=== PATIENT | female | born 1935 | race Caucasian/White ===

== ENCOUNTER → 2019-11-10 | Outpatient (CLI) | payer OTHER, MEDICAID ==
--- NOTE | 2019-11-11 08:28 | RAD ---
EXAM: CHEST PA LATERAL INDICATION: Right-sided chest wall pain for 2 weeks.. TECHNIQUE: PA and lateral views COMPARISON: None currently available. FINDINGS: Post CABG surgical changes are present. The heart size is normal. The great vessels appear unremarkable. There is evidence of right hilar retraction, best appreciated on the lateral view. Lungs show a 5 cm mass in the posterior right lung, distorting the major fissure and likely either in the posterior right upper lobe or in the superior segment right lower lobe. Lungs are hyperinflated in a pattern suggesting underlying obstructive lung disease. There is no pleural effusion or pneumothorax. Plate and screw construct fixation of a distal left clavicular fracture is present. No displaced rib fractures or aggressive appearing osseous lesions are identified. The bones show generalized demineralization. IMPRESSION: There is a mass approximately 5 cm in size in the right lung that could be relevant to patient's complaints of right-sided chest wall pain. Recommend a chest CT with IV contrast in further evaluation. After initial physician contact attempt via paging, voicemail message left with ordering physician's automotive parts counter assistant with request for call back. Return phone call anticipated. Electronically signed by: Navneet Stevens MD (11/11/2019 8:25 AM) [facility]
== END ==
LOC: RAD 15:11
PROVIDERS: ATTEND Family Medicine
DX: R91.8 Other nonspecific abnormal finding of lung field (principal); R07.89 Other chest pain
CPT/HCPCS: 71046

== ENCOUNTER → 2019-12-10 | Outpatient (CLI) | payer OTHER, MEDICAID ==
[2019-11-26 10:33] VITALS: BP 128/60
[~2019-12-10] MED LIST: ALEN70TA6 PO; APIX5TAB PO; ASPI-630 PO; ATOR40TA59 PO; CALC-178 PO; CYAN500T52 PO; CYCL5TAB PO; DOCU-153 PO; ESCITALOPRAM OX20 MG PO; FERR325T14 PO; FOLI0.8C PO; FOLI20CA PO; FURO20TA3 PO; HYDR-2867 PO; METO25TA4 PO; MULT-245 PO; OMEG1CAP50 PO; PANT40TA77 PO; POLY2500 PO; SOLI10TA2 PO; UBID100C26 PO; VENTOLIN HFA18 GM INH; VITA1TAB19 PO
[2019-12-10] MEDS: GADOTERATE 7.5 MMOL/15ML VIAL. IVP ONE (14:38)
--- NOTE | 2019-12-10 15:59 | RAD ---
MRI of the Brain without and with Contrast 12/10/2019 Clinical History: Lung cancer. Technique: Unenhanced T1-weighted sagittal and axial and FLAIR, T2-weighted, gradient echo and diffusion-weighted axial images of the brain were obtained. After the intravenous administration of 8 cc of DOTAREM, enhanced T1-weighted axial, sagittal and coronal images of the brain were obtained. Findings: Some of the images are degraded by patient motion. There is generalized parenchymal atrophy. Patchy and multiple small focal areas of abnormally increased signal intensity are seen within the periventricular and subcortical white matter of both cerebral hemispheres on the FLAIR and T2-weighted images consistent with areas of small vessel ischemic disease. No acute parenchymal abnormality is seen. No abnormal area of contrast enhancement is noted. No extra-axial fluid collection is seen. There is no MRI evidence of acute ischemia/infarction. Moderate to severe mucosal thickening is seen throughout the paranasal sinuses. Moderate to large sized mastoid effusions are seen, left greater than right. Normal flow voids are seen within the major vascular structures surrounding the brain parenchyma. Impression: No acute parenchymal abnormality is seen. There is no MRI evidence of metastatic disease involving the brain parenchyma. Electronically signed by: Rico Steele MD (12/10/2019 3:57 PM) [id number]
--- NOTE | 2019-12-10 18:25 | RAD ---
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 Biopsy 2 weeks ago. He COMPARISON/CORRELATION: 11/19/2019 CT chest with contrast FINDINGS: Net dose 14.3 mCi F-18 FDG was administered intravenously for purposes of PET/CT exam. Blood glucose level at the time of radiotracer administration was 146 mg/dL. Imaging was performed from the skull base to the proximal thighs. Hepatic reference uptake is SUV max of 1.1 . Significant chronic paranasal sinusitis is present. Right lower lobe mass identified with peripheral rim intense uptake and otherwise is photopenic. SUV max of 7.4 is evident. This mass abuts the posterolateral pleural. Focal uptake involving the posterolateral right sixth rib at the site of destructive change appears very present. Mild uptake involving the posterior lower hilum with SUV maximum of the tube is present. There is no intensely abnormal uptake involving the thoracic lymph nodes. No suspicious hilar uptake. Emphysematous involvement of the lung lewis is noted. Interstitial thickening about the right lower lobe mass is again seen with minimal atelectasis. Marked coronary arterial calcifications present. Sternal wires noted. Cholecystectomy is noted. Contrast is noted in the pyelocalyceal systems. Minimal contrast within the urinary bladder is also seen. Fluid distends the stomach. Moderate quantity of stool is noted throughout the colon. Diverticulosis is present. Uptake of radiotracer and small bowel is physiologic in distribution. Osteopenia is noted. No suspicious uptake involving bony structures. IMPRESSION: Right lower lobe mass with peripheral rim of intense uptake compatible with active neoplastic disease. Involvement of the adjacent posterolateral right rib appears be present with associated destructive findings. Surrounding atelectasis is seen. No significant uptake involving the described right hilar lymph nodes on the CT chest with contrast exam dated 11/19/2019 that strongly suggest active metastatic involvement. The lymph nodes may be the result of previous granulomatous or other inflammatory process. The additional small nodule described on the CT chest with contrast dated 11/19/2019 is obscured by adjacent atelectasis. No suspicious uptake identified at the site however. PQRS Compliance Statement: One or more of the following individualized dose reduction techniques were utilized for this examination: 1. Automated exposure control 2. Adjustment of the mA and/or kV according to patient size 3. Use of iterative reconstruction technique Electronically signed by: Aydin Shah MD (12/10/2019 6:22 PM) [id number]
== END ==
LOC: PETSC 13:17
PROVIDERS: ATTEND Radiology Radiation Oncology
DX: C34.31 Malignant neoplasm of lower lobe, right bronchus or lung (principal); J98.11 Atelectasis; M24.80 Other specific joint derangements of unspecified joint, not elsewhere classified; R91.1 Solitary pulmonary nodule; Z90.49 Acquired absence of other specified parts of digestive tract
CPT/HCPCS: 70553; 78815; A9552; A9575

== ENCOUNTER → 2020-02-28 | Outpatient (CLI) | payer OTHER, MEDICAID ==
[2019-11-26 10:33] VITALS: BP 128/60
[~2020-02-28] MED LIST changes: +GADOTERATE 7.5 MMOL/15ML VIAL. IVP ONE
--- NOTE | 2020-02-28 10:59 | RAD ---
THORACIC SPINE WO/W CONTRAST 02/28/2020 9:00 AM INDICATION: Lung cancer with back pain COMPARISON: PET/CT December 10, 2019. TECHNIQUE: Multi planar, multisequence MR imaging of the thoracic spine with and without intravenous contrast. 8 mL gadolinium based contrast was administered. FINDINGS: The region of previously seen solid noncalcified parenchymal mass in the right lower lobe, there is a 4.1 x 3.7 cm masslike area of consolidation with central fluid signal containing gas. There is associated marrow replacement involving the posterior sixth and seventh ribs. Reticular interstitial changes and trace right pleural effusion noted. Loculated fluid is noted along the medial aspect of the right lower lobe. There is exaggerated kyphosis centered at T8-T9. There is a superior plate compression fracture involving T2 with 25 percent height loss. No significant retropulsion. There is a superior plate compression fracture at T4 with 50 percent height loss without retropulsion. No epidural soft tissue component is identified. Findings are suspected represent osteoporotic compression fractures. Mild fatty marrow of the central thoracic spine could reflect post treatment related changes. There is superior endplate edema at T9 and T11 with less than 15 percent height loss. There is no disruption of the posterior ligamentous complex. No definite epidural hematoma is identified. Splenic hilar varices are noted. There is no significant disc herniation, neuroforaminal or spinal canal stenosis. Thoracic spinal cord is normal signal intensity and morphology. No suspicious enhancement is identified. Impression: 1. Superior endplate compression fractures at T2, T4, T9 and T11 with most significant height loss at T4 resulting in 50 percent height loss. No definite underlying pathologic component is visualized. No disruption of the posterior ligament is complex. No compressive epidural hematoma is visualized. 2. Right lower lobe lung mass contains increased fluid component with gas, previously solid on prior PET/CT from 12/10/2019. Correlate with any underlying history of pneumonia or intrapulmonary abscess with gas-forming organism. FOR INTERNAL CODING PURPOSES Critical result: Findings discussed with Maria D at the office of Dr. JOSEPH ORO at 02/28/2020 10:47 AM. RESULT CODE: (C) Electronically signed by: Gianna Abrams MD (02/28/2020 10:56 AM) [facility]
== END | disposition home or self-care (01) ==
LOC: MRI 09:19
PROVIDERS: ATTEND Radiology Radiation Oncology
DX: M48.54XA Collapsed vertebra, not elsewhere classified, thoracic region, initial encounter for fracture (principal); C34.31 Malignant neoplasm of lower lobe, right bronchus or lung; R91.8 Other nonspecific abnormal finding of lung field
CPT/HCPCS: 72157; A9575

== ENCOUNTER → 2020-05-02 | Outpatient (CLI) | payer OTHER, MEDICAID ==
[2019-11-26 10:33] VITALS: BP 128/60
[~2020-05-02] MED LIST changes: -GADOTERATE 7.5 MMOL/15ML VIAL. IVP ONE
== END | disposition home or self-care (01) ==
LOC: LAB 13:18
PROVIDERS: ATTEND Internal Medicine Cardiovascular Disease
DX: Z01.818 Encounter for other preprocedural examination (principal); Z11.59 Encounter for screening for other viral diseases; I48.91 Unspecified atrial fibrillation
CPT/HCPCS: U0003-CS

== ENCOUNTER 2020-05-05 11:11 | Day surgery (SDC) | payer OTHER, MEDICAID ==
[~2020-05-05 11:11] MED LIST changes: +CITA40TA5 PO; +HYDROmorphone 2 MG/ML VIAL IV PRN; +IV RINGERS,LACTATED 1000ML 1,000 ML IV SCH; +MECL-75 PO; +MORPHINE SULFATE 2 MG/ML VIAL. IV PRN; +PROCHLORPERAZINE 10 MG/2 ML VIAL. IV PRN; +fentaNYL PF VIAL 100 MCG/2 ML VIAL IV PRN
[2020-05-05] MEDS ORDERED: PROPOFOL 10 MG/ML (20ML) VIAL. IV ONE (11:55)
[2020-05-05] MEDS ORDERED: LIDOCAINE 2% PF 5 ML VIAL. ONE (11:55)
--- NOTE | 2020-05-05 11:56 | EKG ---
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
[2020-05-05 12:01] LABS: HEMATOCRIT 23.9 % (36.0-47.0); HEMOGLOBIN 7.5 g/dL (12.0-15.5)
[2020-05-05 12:08] LABS: CALCIUM 8.8 mg/dL (8.5-10.1); CREATININE 0.8 mg/dL (0.6-1.0); GFR 68.5; POTASSIUM 3.8 mmol/L (3.5-5.1)
[2020-05-05 12:55] VITALS: BP 137/45
== END 2020-05-05 13:10 | disposition home or self-care (01) ==
LOC: SURG 11:11
PROVIDERS: ATTEND Internal Medicine Cardiovascular Disease
DX: I48.0 Paroxysmal atrial fibrillation (principal); I25.10 Atherosclerotic heart disease of native coronary artery without angina pectoris; M19.90 Unspecified osteoarthritis, unspecified site; F41.9 Anxiety disorder, unspecified; F32.9 Major depressive disorder, single episode, unspecified; I10 Essential (primary) hypertension; J44.9 Chronic obstructive pulmonary disease, unspecified; Z85.118 Personal history of other malignant neoplasm of bronchus and lung; Z90.49 Acquired absence of other specified parts of digestive tract; Z98.61 Coronary angioplasty status; Z90.710 Acquired absence of both cervix and uterus; Z87.891 Personal history of nicotine dependence; Z53.8 Procedure and treatment not carried out for other reasons
CPT/HCPCS: 36415; 80048; 85014; 85018; 92960; 93005; J2704

== ENCOUNTER → 2020-05-17 | Outpatient (CLI) | payer OTHER, MEDICAID ==
[2020-05-05 12:55] VITALS: BP 137/45
[~2020-05-17] MED LIST changes: -HYDROmorphone 2 MG/ML VIAL IV PRN; -IV RINGERS,LACTATED 1000ML 1,000 ML IV SCH; -MORPHINE SULFATE 2 MG/ML VIAL. IV PRN; -PROCHLORPERAZINE 10 MG/2 ML VIAL. IV PRN; +REGADENOSON 0.4 MG/5 ML DISP.SYRIN. IV ONE; -fentaNYL PF VIAL 100 MCG/2 ML VIAL IV PRN
--- NOTE | 2020-05-17 11:50 | RAD ---
MR#: [id number] Date of Study: 05/17/2020 Ordering Physician: JIBMO SERNA, Referring Physician: JIMBO SERNA, Tech: Preet Cosme MBA, RDMS, RVT, RDCS, RTR APPROVED REPORT Patient Location: OUT-PATIENT Indications Rest Pain:Bilaterally VELOCITY AND DOPPLER WAVEFORM ANALYSIS RIGHT cm/secWaveformSeverity LEFT cm/secWaveform Severity dCFA 246.0BiphasicdCFA 223.0Biphasic Prof Fem Art. 121.0BiphasicProf Fem Art. 91.0Biphasic Fem Art Prox. 186.0BiphasicFem Art Prox. 239.0Biphasic Fem Art Mid. 171.0BiphasicFem Art Mid. 113.0Biphasic Fem Art Dist. 89.0BiphasicFem Art Dist. 99.0Biphasic Pop Art(Fossa) 101.0BiphasicPop Art(AK) 104.0Biphasic BRAZE OPERATOR Prox. 77.0BiphasicPTA Prox. 144.0Biphasic BRAZE OPERATOR Dist. 111.0BiphasicPTA Dist. 132.0Biphasic Per Art Mid. 100.0BiphasicPer Art Mid. 109.0Biphasic LA Prox. 77.0BiphasicATA Prox. 89.0Biphasic DPA 56BiphasicDPA 59Biphasic Findings Moderate bilateral plaque in the lower extremity arterial vessels. Biphasic waveforms throughout the lower extremity arteries. Three-vessel runoff below the knee. No high-grade stenosis. Critical Notification Critical Value: No <Conclusion> 1. No significant bilateral lower extremity disease Signed by : Ulysses Robin, Electronically Approved : 05/17/2020 11:50:02
--- NOTE | 2020-05-17 17:12 | RAD ---
MR#: [id number] Date of Study: 05/17/2020 Ordering Physician: JIMBO SERNA, Referring Physician: ARIANNA CUNNINGHAM Tech: RT Glo Quiroga) (N) APPROVED REPORT Test Type: Pharmacological Stress Nurse/Tech: Kera Hernandez R.N. Test Indications: cad Cardiac History: CABG 2 vessel 20 years ago, htn, copd Medications: see ehr Medical History: lung ca Resting ECG: afib Resting Heart Rate: 79 bpm Resting Blood Pressure: 152/49mmHg Pretest Chest Pain: No chest pain Nurse/Tech Notes lungs cta, heart tones irregular Consent: The procedure was explained to the patient in lay terms. Informed consent was witnessed. Osman eout was entered into [facility]. History and Stress Test performed by RT Glo Quiroga) (N) Pharm. Details Pharmacologic stress testing was performed using 0.4mg per 5ml of regadenoson given intravenously ove r 7-10 seconds. Stress Symptoms No chest pain or symptoms.DyspneaNausea POST EXERCISE Reason for Termination: Infusion complete Target HR: No Max HR: 102 bpm Max Blood Pressure: 151/52mmHg Chest Pain: No. Arrhythmia: Yes. PVCs noted ST Change: No. INTERPRETATION Stress EKG Conclusion: The resting EKG shows atrial fibrillation with mild nonspecific ST segment meena nges. The patient has episodes of sinus rhythm with infusion but no ischemic changes. No EKG evidence of stress-induced ischemia. Imaging Protocol IMAGE PROTOCOL: Rest Tc-99m/stress Tc-99m 1 day Rest: Stress: Viability: Radiopharm.Tc99m [id number] Sestamibi Wesm93cDv 31.4mCi Duration 13min. 13min. Img Date 05/17/2020 05/17/2020 Inj-Img Nqzp76nlt. 60min. Rest Admin Site:IV - Left AntecubitalAdministrator:RT Glo Padron)(N) Stress Admin Site: IV - Left AntecubitalAdministrator: RT Glo Quiroga)(N) STRESS DATA End Diast. Vol.59.0mlLVEDV index BSA37.0ml End Syst. Vol.11.0mlLVESV index BSA7.0ml Myocardial Mass94.0gEject. Jmthiqtj49.0% Stress Scores Regional WT0.00Summed WT2.00 Regional WM0.00Summed WM1.00 LV Perfusion The stress scans show no significant defects. The rest scans show no significant defects. Nuclear imaging shows no reversible ischemia or infarct. Wall Motion Left ventricular systolic function is normal with no regional wall motion abnormalities and an ejecti on fraction of greater than 70%. LV Perf. Quant 17 Seg. SSS2.00 17 Seg. SRS0.00 17 Seg. SDS2.00 Stress Defect Extent (% LAD)0.00Rest Defect Extent (% LAD)0.00Rev. Defect Extent (% LAD)0.00 Stress Defect Extent (% LCX) 12.50Rest Defect Extent (% LCX)0.00Rev. Defect Extent (% LCX)0.00 Stress Defect Extent (% RCA)0.00Rest Defect Extent (% RCA)0.00Rev. Defect Extent (% RCA)0.00 Stress Defect Extent (% MARISA)2.20Rest Defect Extent (% MARISA)0.00Rev. Defect Extent (% MARISA)0.00 Conclusion 1. No EKG evidence of stress-induced ischemia. 2. Nuclear imaging shows no reversible ischemia or infarct. 3. Normal left ventricular systolic function with an ejection fraction of greater than 70%. 4. Low risk Lexiscan nuclear stress test. Signed by : Talat Sanchez MD Electronically Approved : 05/17/2020 17:12:14
== END | disposition home or self-care (01) ==
LOC: NM 10:45
PROVIDERS: ATTEND Internal Medicine Cardiovascular Disease
DX: I70.203 Unspecified atherosclerosis of native arteries of extremities, bilateral legs (principal); J44.9 Chronic obstructive pulmonary disease, unspecified; I10 Essential (primary) hypertension; Z95.1 Presence of aortocoronary bypass graft
CPT/HCPCS: 78452; 93017; 93925; A9500; J2785

== ENCOUNTER 2020-06-06 20:12 | Inpatient (IN) | payer OTHER, MEDICAID ==
[~2020-06-06] VITALS: Ht 152.4 cm; Wt 46.9 kg
[~2020-06-06 20:12] MED LIST changes: -REGADENOSON 0.4 MG/5 ML DISP.SYRIN. IV ONE
--- NOTE | 2020-06-06 20:27 | PHYS DOC ---
Past Medical History Past Medical History: CAD, COPD, High Cholesterol, Hypertension Past Surgical History: Cholecystectomy, Coronary Bypass Surgery, Hysterectomy Smoking Status: Former Smoker Alcohol Use: None General Adult EDM: Chief Complaint: SHORTNESS OF BREATH HPI: HPI: 85-year-old female past medical history significant for stage 4 lung cancer, COPD with tobacco dependence, CAD, atrial fibrillation on eliquis and hypertension, presents the ED with complaints of shortness of breath for the past few days with anorexia, sore throat and productive cough. Patient states she had a stress test and lower extremity duplex ultrasound by primary care physician. EMR was reviewed lower extremity duplex showed no evidence of DVT. Stress test showed no active ischemia, with atrial fibrillation. Review of Systems: Review of Systems: Constitutional: Denies fever or chills. [] Eyes: Denies change in visual acuity. [] HENT: Denies nasal congestion or sinus pressure Respiratory: Denies hemoptysis Cardiovascular: Denies chest pain or edema. [] GI: Denies abdominal pain, nausea, vomiting, bloody stools or diarrhea. [] : Denies dysuria. [] or hematuria Musculoskeletal: Denies back pain or joint pain. [] Integument: Denies rash. [] Neurologic: Denies headache, focal weakness or sensory changes. [] or neck stiffness Endocrine: Denies polyuria or polydipsia. [] Lymphatic: Denies swollen glands. [] Psychiatric: Denies depression or anxiety. [] Heart Score: Risk Factors: Risk Factors: DM, Current or recent (<one month) smoker, HTN, HLP, family history of CAD, obesity. Risk Scores: Score 0 - 3: 2.5% MACE over next 6 weeks - Discharge Home Score 4 - 6: 20.3% MACE over next 6 weeks - Admit for Clinical Observation Score 7 - 10: 72.7% MACE over next 6 weeks - Early Invasive Strategies Allergies: Allergies: Allergies Coded Allergies Type Severity Reaction Last Updated Verified No Known Drug Allergies 05/04/20 No Physical Exam: PE: Constitutional: thin/frail, no acute distress, HENT: Normocephalic, atraumatic, bilateral external ears normal, oropharynx moist, no oral exudates or erythema, nose normal. [] Eyes: EOMI, conjunctiva normal, no discharge. [] Neck: Normal range of motion, supple, no stridor. [] Cardiovascular:Heart rate regular rhythm, no murmur [] Lungs & Thorax: Bilateral breath sounds clear to auscultation [] Abdomen: Bowel sounds normal, soft, no tenderness, no masses, no pulsatile masses. [] Skin: Warm, dry, pale appearing Back: No tenderness, no CVA tenderness. [] Extremities: No tenderness, no cyanosis, no clubbing, ROM intact, no edema. [] Neurologic: Alert and oriented X 3, normal motor function, normal sensory function, no focal deficits noted. [] Psychologic: Affect normal, judgement normal, mood normal. [] EKG: EKG: Atrial fibrillation at 105 bpm, no axis deviation, normal intervals, no T wave inversions, no ST elevations or ST depressions Radiology/Procedures: Radiology/Procedures: []IMAGING REPORT Signed PATIENT: MEGHA BANUELOS AACCOUNT: [id number] : 1935 LOCATION: ER AGE: 85 SEX: F EXAM STATUS: REG ER ORD. PHYSICIAN: CHLOÉ WEEMS DO REASON: soa PROCEDURE: PORTABLE CHEST 1V AP chest x-ray HISTORY: Shortness of breath. COMPARISON: Chest x-ray November 26, 2019. FINDINGS: Prominent cardiomegaly stable. Median sternotomy coronary bypass. Fixation plate and screws left clavicle. Prominence of the pulmonary vasculature likely congestion is stable. Development of right greater than left pulmonary interstitial and alveolar opacities with fissural thickening likely pulmonary edema. No pleural effusions. IMPRESSION: Congestive heart failure with cardiomegaly and pulmonary edema. No pleural effusions. Electronically signed by: Tacho Yeboah MD (06/06/2020 9:24 PM) [id number] DICTATED and SIGNED BY: TACHO YEBOAH MD DATE: 06/06/202123 Course & Med Decision Making: Course & Med Decision Making Pertinent Labs and Imaging studies reviewed. (See chart for details) Concern sepsis secondary to community-acquired pneumonia, afib with rate 105, pulmonary vascular congestion with congestive heart failure and symptomatic anemia. Patient states stool is brown in color. States she started peeing blood on Friday. No active blood loss in ed. Transfusion started in ed. Will admit for other medical management. Patient stable at time of admission and agrees with this plan. Patient is a DNR. I have spoken with the patient and/or caregivers. I have explained the patient's condition, diagnosis and treatment plan based on the information available to me at this time. I have answered the patient's and/or caregivers questions and answered any concerns. The patient and/or caregivers have as good an understanding of the patient's diagnosis, condition and treatment plan as can be expected at this point. The patient has been stabilized within the capability of the emergency department. The patient will be transported for further care and management or will be moved to an observation or inpatient s ervice. I have communicated with the staff or medical practitioner taking over this patient's care. Dragon Disclaimer: Dragon Disclaimer: This electronic medical record was generated, in whole or in part, using a voice recognition dictation system. Departure Departure Impression: Primary Impression: Sepsis Additional Impressions: CAP (community acquired pneumonia) CHF (congestive heart failure) Symptomatic anemia Disposition: ADMITTED INPATIENT Admitting Physician: HUONG (Dr. Umanzor) Condition: GUARDED Referrals: Guzman DELVALLE MD (PCP) Justicifation of Admission Dx: Justifications for Admission: Justification of Admission Dx: Yes CHLOÉ WEEMS DO Jun 06, 2020 20:27
[2020-06-06] MEDS ORDERED: IV NORMAL SALINE 250ML 250 ML IV ONE (20:45)
[2020-06-06] MEDS ORDERED: cefTRIAXone IV Push 1 GM VIAL. IVP ONE (20:45)
[2020-06-06] MEDS ORDERED: AZITHRMYCN 500MG IVPB FOR OMNI 250 ML IV ONE (20:45)
[2020-06-06 20:53] LABS: BASO % 1 % (0-3); EOS % 0 % (0-3); LYMPH # 0.3 x10^3/uL (1.0-4.8); LYMPH % 4 % (24-48); MEAN CORPUSCULAR HEMOGLOBIN 22 pg (25-35); MEAN CORPUSCULAR HGB CONC 31 g/dL (31-37); MEAN CORPUSCULAR VOLUME 71 fL (79-100); MONO # 0.4 x10^3/uL (0.0-1.1); MONO % 7 % (0-9); NEUT % 88 % (31-73); PLATELET COUNT 376 x10^3/uL (140-400); RED BLOOD COUNT 2.36 x10^6/uL (3.50-5.40); RED CELL DISTRIBUTION WIDTH 19.3 % (11.5-14.5); WHITE BLOOD COUNT 6.8 x10^3/uL (4.0-11.0)
[2020-06-06 20:59] LABS: HEMATOCRIT 16.8 % (36.0-47.0); HEMOGLOBIN 5.2 g/dL (12.0-15.5)
[2020-06-06 21:04] LABS: CALCIUM 8.6 mg/dL (8.5-10.1); CREATININE 0.8 mg/dL (0.6-1.0); GFR 68.5; POTASSIUM 4.2 mmol/L (3.5-5.1)
[2020-06-06 21:09] LABS: ALBUMIN 2.3 g/dL (3.4-5.0); ALBUMIN/GLOBULIN RATIO 0.4 (1.0-1.7); TOTAL BILIRUBIN 0.2 mg/dL (0.2-1.0); TOTAL PROTEIN 7.7 g/dL (6.4-8.2)
[2020-06-06 21:21] LABS: % BANDS 3 % (0-9); % BASOS 1 % (0-3); % LYMPHS 2 % (24-48); % MONOS 8 % (0-10); % SEGS 86 % (35-66); ANISOCYTOSIS SLIGHT; HYPOCHROMIA MOD; MICROCYTOSIS MOD; PLT ESTIMATE ADEQUATE (ADEQUATE); POIKILOCYTOSIS SLIGHT
[2020-06-06 21:22] LABS: OVALOCYTES FEW
--- NOTE | 2020-06-06 21:27 | RAD ---
AP chest x-ray HISTORY: Shortness of breath. COMPARISON: Chest x-ray November 26, 2019. FINDINGS: Prominent cardiomegaly stable. Median sternotomy coronary bypass. Fixation plate and screws left clavicle. Prominence of the pulmonary vasculature likely congestion is stable. Development of right greater than left pulmonary interstitial and alveolar opacities with fissural thickening likely pulmonary edema. No pleural effusions. IMPRESSION: Congestive heart failure with cardiomegaly and pulmonary edema. No pleural effusions. Electronically signed by: Parveen Yeboah MD (06/06/2020 9:24 PM) [id number]
[2020-06-06] MEDS ORDERED: NITROGLYCERIN SUBLINGUAL 0.4 MG BOTTLE OF 25. SL PRN (21:45)
[2020-06-06 21:54] LABS: BASE EXCESS ABG -1 mmol/L (-3-3); HCO3 ABG 23 mmol/L (21-28); PCO2 ABG 32 mmHg (35-46); PO2 ABG 85 mmHg (65-108); SAT O2 ABG 98 % (92-99)
[2020-06-06 21:56] LABS: FIO2 ABG 32
[2020-06-06] MEDS ORDERED: DEXTROSE 50% 25 GM / 50ML DISP.SYRIN. IV PRN (22:30)
[2020-06-06] MEDS ORDERED: POTASSIUM CHLORIDE 20 MEQ TABLET.ER. PO PRN (22:30)
[2020-06-06] MEDS ORDERED: DOCUSATE SODIUM 100 MG CAPSULE. PO PRN (22:30)
[2020-06-06] MEDS ORDERED: SENNOSIDES 8.6 MG TABLET PO PRN (22:30)
[2020-06-06] MEDS ORDERED: POTASSIUM CHLORIDE 10MEQ 100 ML IV PRN (22:30)
[2020-06-06] MEDS ORDERED: ONDANSETRON PF 4 MG/2 ML VIAL. IVP PRN (22:30)
[2020-06-06] MEDS ORDERED: POTASSIUM CHLORIDE 10MEQ 100 ML IV SCH (23:00)
[2020-06-06 23:50] VITALS: BP 120/56
[2020-06-07] VITALS (13 sets, daily range): BP systolic 110–156; BP diastolic 50–87
--- NOTE | 2020-06-07 02:00 | NUR ---
pt needed a unit of blood, first temp chech said 98.3 on units thermometer. . next check disposable thermometer said said used disposable thermometer and it said 100.0 determine disposable is not accurate. lcrn
[2020-06-07] MEDS: ACETAMINOPHEN 325 MG TABLET. PO PRN ×3 (02:11→21:39)
[2020-06-07] MEDS: ENOXAPARIN 30 MG/0.3 ML SYRINGE. SQ SCH (05:47)
[2020-06-07 07:29] LABS: BASO % 0 % (0-3); EOS # 0.1 x10^3/uL (0.0-0.7); EOS % 1 % (0-3); HEMATOCRIT 24.2 % (36.0-47.0); HEMOGLOBIN 7.9 g/dL (12.0-15.5); LYMPH # 0.5 x10^3/uL (1.0-4.8); LYMPH % 10 % (24-48); MEAN CORPUSCULAR HEMOGLOBIN 25 pg (25-35); MEAN CORPUSCULAR HGB CONC 33 g/dL (31-37); MEAN CORPUSCULAR VOLUME 77 fL (79-100); MONO # 0.6 x10^3/uL (0.0-1.1); MONO % 12 % (0-9); NEUT # 3.7 x10^3/uL (1.8-7.7); NEUT % 77 % (31-73); PLATELET COUNT 285 x10^3/uL (140-400); RED BLOOD COUNT 3.14 x10^6/uL (3.50-5.40); RED CELL DISTRIBUTION WIDTH 20.2 % (11.5-14.5); WHITE BLOOD COUNT 4.7 x10^3/uL (4.0-11.0)
[2020-06-07 07:45] LABS: CALCIUM 8.4 mg/dL (8.5-10.1); CREATININE 0.6 mg/dL (0.6-1.0); GFR 95.5; MAGNESIUM 2.3 mg/dL (1.8-2.4); PHOSPHORUS 3.1 mg/dL (2.6-4.7)
--- NOTE | 2020-06-07 07:56 | EKG ---
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
--- NOTE | 2020-06-07 08:59 | PDOC1 ---
History and Physical Date of Admission Date of Admission DATE: 06/07/20 TIME: 08:59 Identification/Chief Complaint Chief Complaint SEEN IN ER WITH COUGH , 85-year-old female past medical history significant for stage 4 lung cancer, COPD with tobacco dependence, CAD, atrial fibrillation on eliquis and hypertension, presents the ED with complaints of shortness of breath for the past few days with anorexia, sore throat and productive cough. Patient states she had a stress test and lower extremity duplex ultrasound by primary care physician. EMR was reviewed lower extremity duplex showed no evidence of DVT. Stress test showed no active ischemia, with atrial fibrillation. 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 FHX COPD Cardiovascular: Hyperlipidemia Pulmonary: Bronchitis, COPD Psych: No pertinent hx Musculoskeletal: Osteoarthritis Endocrine: No pertinent hx Family History Family History: Chronic Bronchitis, Hypertension Social History Smoke: Quit ALCOHOL: none Drugs: None Current Problem List Problem List Problems Medical Problems: (1) CAP (community acquired pneumonia) Status: Acute (2) CHF (congestive heart failure) Status: Acute (3) Sepsis Status: Acute (4) Symptomatic anemia Status: Acute Current Medications Current Medications Current Medications Ceftriaxone Sodium (Rocephin) 1 gm 1X ONCE IVP Last administered on 06/06/20at 21:00; Start 06/06/20 at 20:45; Stop 06/06/20 at 20:46; Status DC Azithromycin 250 ml @ 250 mls/hr 1X ONCE IV Last administered on 06/06/20at 21:00; Start 06/06/20 at 20:45; Stop 06/06/20 at 21:44; Status DC Sodium Chloride 250 ml @ 250 mls/hr 1X ONCE IV Last administered on 06/06/20at 21:00; Start 06/06/20 at 20:45; Stop 06/06/20 at 21:44; Status DC Nitroglycerin (Nitrostat) 0.4 mg PRN Q5MIN PRN SL CHEST PAIN; Start 06/06/20 at 21:45 Sennosides (Senna) 17.2 mg PRN BID PRN PO CONSTIPATION; Start 06/06/20 at 22:30 Docusate Sodium (Colace) 100 mg PRN DAILY PRN PO HARD STOOLS; Start 06/06/20 at 22:30 Ondansetron HCl (Zofran) 4 mg PRN Q6HRS PRN IVP NAUSEA/VOMITING; Start 06/06/20 at 22:30 Potassium Chloride (Klor-Con) 40 meq 1X PRN PRN PO PER PROTOCOL; Start 06/06/20 at 22:30 Magnesium Oxide (Magnesium Oxide) 400 mg BID PO ; Start 06/07/20 at 09:00; Stop 06/08/20 at 21:01 Potassium Chloride/Water 100 ml @ 100 mls/hr Q1H IV ; Start 06/06/20 at 23:00; Stop 06/07/20 at 02:59; Status DC Magnesium Sulfate 50 ml @ 25 mls/hr Q24H IV ; Start 06/06/20 at 23:00; Stop 06/09/20 at 00:59 Potassium Chloride/Water 100 ml @ 100 mls/hr PRN Q1HR PRN IV low k; Start 06/06/20 at 22:30 Dextrose (Dextrose 50%-Water Syringe) 12.5 gm PRN Q15MIN PRN IV SEE COMMENTS; Start 06/06/20 at 22:30 Acetaminophen (Tylenol) 650 mg PRN Q4HRS PRN PO TEMP OVER 100.4F OR MILD PAIN Last administered on 06/07/20at 02:11; Start 06/06/20 at 22:30 Enoxaparin Sodium (Lovenox 30mg Syringe) 30 mg Q24H SQ Last administered on 06/07/20at 05:47; Start 06/06/20 at 22:30 Azithromycin 500 mg/Sodium Chloride 250 ml @ 250 mls/hr Q24H IV ; Start 06/07/20 at 21:00 Ceftriaxone Sodium (Rocephin) 1 gm Q24H IVP ; Start 06/07/20 at 20:00 Influenza Virus Vaccine Quadrival (Fluzone Quad Syringe) 0.5 ml ONCE ONCE VAX IM ; Start 06/07/20 at 09:00; Stop 06/07/20 at 09:01 Active Scripts Active Reported Meclizine Hcl 25 Mg Tablet 25 Mg PO PRN PRN Citalopram Hbr (Citalopram Hydrobromide) 40 Mg Tablet 40 Mg PO DAILY Folic Acid 0.8 Mg Capsule 0.4 Mg PO DAILY Dok (Docusate Sodium) 100 Mg Capsule 100 Mg PO DAILY Coq-10 (Ubidecarenone) 100 Mg Capsule 100 Mg PO DAILY Calcium 1,000 + D3 Caplet (Calcium Carbonate/Vitamin D3) 1 Each Tablet 1 Tab PO DAILY 30 Days Atorvastatin Calcium 40 Mg Tablet 1 Tab PO DAILY Aspirin 81 Mg Tab.chew 1 Tab PO DAILY Eliquis (Apixaban) 5 Mg Tablet 5 Mg PO BID Alendronate Sodium 70 Mg Tablet 1 Tab PO WEEKLY Ventolin Hfa Inhaler (Albuterol Sulfate) 18 Gm Hfa.aer.ad 2 Puff INH PRN Q4-6HRS PRN Vitamin B-12 (Cyanocobalamin (Vitamin B-12)) 500 Mcg Tablet 1 Tab PO DAILY 30 Days B Complex (Vitamin B Complex) 1 Each Tablet 1 Tab PO DAILY 30 Days Vesicare (Solifenacin Succinate) 10 Mg Tablet 1 Tab PO DAILY 30 Days Polyethylene Glycol 3350 2,500 Gm Powder 17 Gm PO DAILY Pantoprazole Sodium (Pantoprazole Sodium) 40 Mg Tablet.dr 40 Mg PO DAILYAC Multi Vitamin Daily (Multivitamin) 1 Each Tablet 1 Tab PO DAILY 30 Days Metoprolol Tartrate 25 Mg Tablet 1 Tab PO BID Hydralazine Hcl 10 Mg Tablet 2 Tab PO TID Furosemide 20 Mg Tablet 1 Tab PO DAILY Fish Oil 1,000 Mg Softgel (Wells-3 Fatty Acids/Fish Oil) 1 Each Capsule 1 Cap PO DAILY 30 Days Ferrous Sulfate 325 Mg Tablet 1 Tab PO DAILY Allergies Allergies: Coded Allergies: No Known Drug Allergies (Unverified , 05/04/20) ROS Review of System Constitutional: Denies fever or chills. [] Eyes: Denies change in visual acuity. [] HENT: Denies nasal congestion or sinus pressure Respiratory: Denies hemoptysis pos cough Cardiovascular: Denies chest pain or edema. [] GI: Denies abdominal pain, nausea, vomiting, bloody stools or diarrhea. [] : Denies dysuria. [] or hematuria Musculoskeletal: Denies back pain or joint pain. [] Integument: Denies rash. [] Neurologic: Denies headache, focal weakness or sensory changes. [] or neck stiffness Endocrine: Denies polyuria or polydipsia. [] Lymphatic: Denies swollen glands. [] Psychiatric: Denies depression or anxiety. [] 14 pt ros otherwise neg Physical Exam Physical Exam Constitutional: thin/frail, no acute distress, HENT: Normocephalic, atraumatic, bilateral external ears normal, oropharynx moist, no oral exudates or erythema, nose normal. [] Eyes: EOMI, conjunctiva normal, no discharge. [] Neck: Normal range of motion, supple, no stridor. [] Cardiovascular:Heart rate regular rhythm, no murmur [] Lungs & Thorax: Bilateral rhonchi Abdomen: Bowel sounds normal, soft, no tenderness, no masses, no pulsatile masses. [] Skin: Warm, dry, pale appearing Back: No tenderness, no CVA tenderness. [] Extremities: No tenderness, no cyanosis, no clubbing, ROM intact, no edema. [] Neurologic: Alert and oriented X 3, normal motor function, normal sensory function, no focal deficits noted. [] Psychologic: Affect normal, judgment normal, mood normal. [] Heart: RRR Breasts: Not examined Abdomen: Soft Rectal Exam: not examined PELVIC: Examination not indicated Extremities: No cyanosis Neuro: Normal speech, Cranial nerves 3-12 NL Psych/Mental Status: Mental status NL, Mood NL Vitals Vitals Vital Signs Date Time Temp Pulse Resp B/P (MAP) Pulse Ox O2 Delivery O2 Flow Rate FiO2 06/07/20 07:05 97.7 87 18 121/78 (92) 100 97.7 06/07/20 01:30 3.0 06/06/20 23:50 Room Air Labs Labs Laboratory Tests Test 06/06/20 20:30 06/06/20 21:55 06/06/20 23:51 06/07/20 07:05 White Blood Count 6.8 x10^3/uL (4.0-11.0) 4.7 x10^3/uL (4.0-11.0) Red Blood Count 2.36 x10^6/uL (3.50-5.40) 3.14 x10^6/uL (3.50-5.40) Hemoglobin 5.2 g/dL (12.0-15.5) 7.9 g/dL (12.0-15.5) Hematocrit 16.8 % (36.0-47.0) 24.2 % (36.0-47.0) Mean Corpuscular Volume 71 fL (79-100) 77 fL (79-100) Mean Corpuscular Hemoglobin 22 pg (25-35) 25 pg (25-35) Mean Corpuscular Hemoglobin Concent 31 g/dL (31-37) 33 g/dL (31-37) Red Cell Distribution Width 19.3 % (11.5-14.5) 20.2 % (11.5-14.5) Platelet Count 376 x10^3/uL (140-400) 285 x10^3/uL (140-400) Neutrophils (%) (Auto) 88 % (31-73) 77 % (31-73) Lymphocytes (%) (Auto) 4 % (24-48) 10 % (24-48) Monocytes (%) (Auto) 7 % (0-9) 12 % (0-9) Eosinophils (%) (Auto) 0 % (0-3) 1 % (0-3) Basophils (%) (Auto) 1 % (0-3) 0 % (0-3) Neutrophils # (Auto) 6.0 x10^3/uL (1.8-7.7) 3.7 x10^3/uL (1.8-7.7) Lymphocytes # (Auto) 0.3 x10^3/uL (1.0-4.8) 0.5 x10^3/uL (1.0-4.8) Monocytes # (Auto) 0.4 x10^3/uL (0.0-1.1) 0.6 x10^3/uL (0.0-1.1) Eosinophils # (Auto) 0.0 x10^3/uL (0.0-0.7) 0.1 x10^3/uL (0.0-0.7) Basophils # (Auto) 0.0 x10^3/uL (0.0-0.2) 0.0 x10^3/uL (0.0-0.2) Segmented Neutrophils % 86 % (35-66) Band Neutrophils % 3 % (0-9) Lymphocytes % 2 % (24-48) Monocytes % 8 % (0-10) Basophils % 1 % (0-3) Platelet Estimate Adequate (ADEQUATE) Hypochromasia Mod Poikilocytosis Slight Anisocytosis Slight Microcytosis Mod Ovalocytes Few Sodium Level 131 mmol/L (136-145) 138 mmol/L (136-145) Potassium Level 4.2 mmol/L (3.5-5.1) 4.0 mmol/L (3.5-5.1) Chloride Level 96 mmol/L (98-107) 103 mmol/L (98-107) Carbon Dioxide Level 25 mmol/L (21-32) 29 mmol/L (21-32) Anion Gap 10 (6-14) 6 (6-14) Blood Urea Nitrogen 10 mg/dL (7-20) 9 mg/dL (7-20) Creatinine 0.8 mg/dL (0.6-1.0) 0.6 mg/dL (0.6-1.0) Estimated GFR (Cockcroft-Gault) 68.5 95.5 BUN/Creatinine Ratio 13 (6-20) Glucose Level 166 mg/dL (70-99) 95 mg/dL (70-99) Lactic Acid Level 3.9 mmol/L (0.4-2.0) 2.3 mmol/L (0.4-2.0) Calcium Level 8.6 mg/dL (8.5-10.1) 8.4 mg/dL (8.5-10.1) Magnesium Level 1.9 mg/dL (1.8-2.4) 2.3 mg/dL (1.8-2.4) Total Bilirubin 0.2 mg/dL (0.2-1.0) Aspartate Amino Transf (AST/SGOT) 21 U/L (15-37) Alanine Aminotransferase (ALT/SGPT) 12 U/L (14-59) Alkaline Phosphatase 70 U/L (46-116) Troponin I Quantitative < 0.017 ng/mL (0.000-0.055) IF-Lqk-M-Type Natriuretic Peptide 1795 pg/mL (0-449) Total Protein 7.7 g/dL (6.4-8.2) Albumin 2.3 g/dL (3.4-5.0) Albumin/Globulin Ratio 0.4 (1.0-1.7) O2 Saturation 98 % (92-99) Arterial Blood pH 7.47 (7.35-7.45) Arterial Blood pCO2 at Patient Temp 32 mmHg (35-46) Arterial Blood pO2 at Patient Temp 85 mmHg (65-108) Arterial Blood HCO3 23 mmol/L (21-28) Arterial Blood Base Excess -1 mmol/L (-3-3) FiO2 32 Phosphorus Level 3.1 mg/dL (2.6-4.7) Laboratory Tests Test 06/06/20 20:30 06/06/20 21:55 06/06/20 23:51 06/07/20 07:05 White Blood Count 6.8 x10^3/uL (4.0-11.0) 4.7 x10^3/uL (4.0-11.0) Red Blood Count 2.36 x10^6/uL (3.50-5.40) 3.14 x10^6/uL (3.50-5.40) Hemoglobin 5.2 g/dL (12.0-15.5) 7.9 g/dL (12.0-15.5) Hematocrit 16.8 % (36.0-47.0) 24.2 % (36.0-47.0) Mean Corpuscular Volume 71 fL (79-100) 77 fL (79-100) Mean Corpuscular Hemoglobin 22 pg (25-35) 25 pg (25-35) Mean Corpuscular Hemoglobin Concent 31 g/dL (31-37) 33 g/dL (31-37) Red Cell Distribution Width 19.3 % (11.5-14.5) 20.2 % (11.5-14.5) Platelet Count 376 x10^3/uL (140-400) 285 x10^3/uL (140-400) Neutrophils (%) (Auto) 88 % (31-73) 77 % (31-73) Lymphocytes (%) (Auto) 4 % (24-48) 10 % (24-48) Monocytes (%) (Auto) 7 % (0-9) 12 % (0-9) Eosinophils (%) (Auto) 0 % (0-3) 1 % (0-3) Basophils (%) (Auto) 1 % (0-3) 0 % (0-3) Neutrophils # (Auto) 6.0 x10^3/uL (1.8-7.7) 3.7 x10^3/uL (1.8-7.7) Lymphocytes # (Auto) 0.3 x10^3/uL (1.0-4.8) 0.5 x10^3/uL (1.0-4.8) Monocytes # (Auto) 0.4 x10^3/uL (0.0-1.1) 0.6 x10^3/uL (0.0-1.1) Eosinophils # (Auto) 0.0 x10^3/uL (0.0-0.7) 0.1 x10^3/uL (0.0-0.7) Basophils # (Auto) 0.0 x10^3/uL (0.0-0.2) 0.0 x10^3/uL (0.0-0.2) Segmented Neutrophils % 86 % (35-66) Band Neutrophils % 3 % (0-9) Lymphocytes % 2 % (24-48) Monocytes % 8 % (0-10) Basophils % 1 % (0-3) Platelet Estimate Adequate (ADEQUATE) Hypochromasia Mod Poikilocytosis Slight Anisocytosis Slight Microcytosis Mod Ovalocytes Few Sodium Level 131 mmol/L (136-145) 138 mmol/L (136-145) Potassium Level 4.2 mmol/L (3.5-5.1) 4.0 mmol/L (3.5-5.1) Chloride Level 96 mmol/L (98-107) 103 mmol/L (98-107) Carbon Dioxide Level 25 mmol/L (21-32) 29 mmol/L (21-32) Anion Gap 10 (6-14) 6 (6-14) Blood Urea Nitrogen 10 mg/dL (7-20) 9 mg/dL (7-20) Creatinine 0.8 mg/dL (0.6-1.0) 0.6 mg/dL (0.6-1.0) Estimated GFR (Cockcroft-Gault) 68.5 95.5 BUN/Creatinine Ratio 13 (6-20) Glucose Level 166 mg/dL (70-99) 95 mg/dL (70-99) Lactic Acid Level 3.9 mmol/L (0.4-2.0) 2.3 mmol/L (0.4-2.0) Calcium Level 8.6 mg/dL (8.5-10.1) 8.4 mg/dL (8.5-10.1) Magnesium Level 1.9 mg/dL (1.8-2.4) 2.3 mg/dL (1.8-2.4) Total Bilirubin 0.2 mg/dL (0.2-1.0) Aspartate Amino Transf (AST/SGOT) 21 U/L (15-37) Alanine Aminotransferase (ALT/SGPT) 12 U/L (14-59) Alkaline Phosphatase 70 U/L (46-116) Troponin I Quantitative < 0.017 ng/mL (0.000-0.055) OZ-[id number]-S-Type Natriuretic Peptide 1795 pg/mL (0-449) Total Protein 7.7 g/dL (6.4-8.2) Albumin 2.3 g/dL (3.4-5.0) Albumin/Globulin Ratio 0.4 (1.0-1.7) O2 Saturation 98 % (92-99) Arterial Blood pH 7.47 (7.35-7.45) Arterial Blood pCO2 at Patient Temp 32 mmHg (35-46) Arterial Blood pO2 at Patient Temp 85 mmHg (65-108) Arterial Blood HCO3 23 mmol/L (21-28) Arterial Blood Base Excess -1 mmol/L (-3-3) FiO2 32 Phosphorus Level 3.1 mg/dL (2.6-4.7) Images Images PATIENT: MEGHA BANUELOS AACCOUNT: [id number] : 1935 [address]ATION: [facility] AGE: 84 SEX: F EXAM STATUS: REG CLI ORD. PHYSICIAN: ELLIE CARDONA MD REASON: PROCEDURE: PET W CT SKULL TO MIDTHIGH EXAMINATION: PET W CT SKULL TO MIDTHIGH HISTORY: Right lower lobe squamous cell carcinoma initial staging. Biopsy 2 weeks ago. He COMPARISON/CORRELATION: 11/19/2019 CT chest with contrast FINDINGS: Net dose 14.3 mCi F-18 FDG was administered intravenously for purposes of PET/CT exam. Blood glucose level at the time of radiotracer administration was 146 mg/dL. Imaging was performed from the skull base to the proximal thighs. Hepatic reference uptake is SUV max of 1.1 . Significant chronic paranasal sinusitis is present. Right lower lobe mass identified with peripheral rim intense uptake and otherwise is photopenic. SUV max of 7.4 is evident. This mass abuts the posterolateral pleural. Focal uptake involving the posterolateral right sixth rib at the site of destructive change appears very present. Mild uptake involving the posterior lower hilum with SUV maximum of the tube is present. There is no intensely abnormal uptake involving the thoracic lymph nodes. No suspicious hilar uptake. Emphysematous involvement of the lung lewis is noted. Interstitial thickening about the right lower lobe mass is again seen with minimal atelectasis. Marked coronary arterial calcifications present. Sternal wires noted. Cholecystectomy is noted. Contrast is noted in the pyelocalyceal systems. Minimal contrast within the urinary bladder is also seen. Fluid distends the stomach. Moderate quantity of stool is noted throughout the colon. Diverticulosis is present. Uptake of radiotracer and small bowel is physiologic in distribution. Osteopenia is noted. No suspicious uptake involving bony structures. IMPRESSION: Right lower lobe mass with peripheral rim of intense uptake compatible with active neoplastic disease. Involvement of the adjacent posterolateral right rib appears be present with associated destructive findings. Surrounding atelectasis is seen. No significant uptake involving the described right hilar lymph nodes on the CT chest with contrast exam dated 11/19/2019 that strongly suggest active metastatic involvement. The lymph nodes may be the result of previous granulomatous or other inflammatory process. The additional small nodule described on the CT chest with contrast dated 11/19/2019 is obscured by adjacent atelectasis. No suspicious uptake identified at the site however. PQRS Compliance Statement: One or more of the following individualized dose reduction techniques were utilized for this examination: 1. Automated exposure control 2. Adjustment of the mA and/or kV according to patient size 3. Use of iterative reconstruction technique Electronically signed by: Aydin Mendoza MD (12/10/2019 6:22 PM) [facility] DICTATED and SIGNED BY: AYDIN MENDOZA MD DATE: 12/10/191821 AP chest x-ray HISTORY: Shortness of breath. COMPARISON: Chest x-ray November 26, 2019. FINDINGS: Prominent cardiomegaly stable. Median sternotomy coronary bypass. Fixation plate and screws left clavicle. Prominence of the pulmonary vasculature likely congestion is stable. Development of right greater than left pulmonary interstitial and alveolar opacities with fissural thickening likely pulmonary edema. No pleural effusions. IMPRESSION: Congestive heart failure with cardiomegaly and pulmonary edema. No pleural effusions. Electronically signed by: Tacho Yeboah MD (06/06/2020 9:24 PM) [id number] DICTATED and SIGNED BY: TACHO YEBOAH MD DATE: 06/06/202123 DPOA REVIEW 17 MIN What Is a Power of Appliance Line Assembler? A power of defense attorney (POA) is a legal document giving one person (the agent or [id number]) the power to act for another person (the principal). The agent can have broad legal authority or limited authority to make legal decisions about the principal's property, finances or medical care. The power of defense attorney is frequently used in the event of a principal's illness or disability, or when the principal can't be present to sign necessary legal documents for financial transactions. A power of defense attorney can end for a number of reasons, such as when the principal dies, the principal revokes it, a court invalidates it, the principal divorces their spouse, who happens to be the agent, or the agent can no longer carry out the outlined responsibilities. Conventional POAs lapse when the creator becomes incapacitated, but a durable POA remains in force to enable the agent to manage the creators affairs, and a springing POA comes into effect only if and when the creator of the POA becomes incapacitated. A medical or healthcare POA enables an agent to make medical decisions on behalf of an incapacitated person. Hood Takeaways A power of defense attorney (POA) is a legal document giving one person, the agent or [id number] the power to act for another person, the principal. The agent can have broad legal authority or limited authority to make decisions about the principal's property, finances or medical care. The power of defense attorney is often used when a principal becomes ill or disabled, or when they can't be present to sign necessary legal documents for financial transactions. Understanding Power of Appliance Line Assembler A power of defense attorney should be considered when planning for long-term care. There are different types of POAs that fall under either a general power of defense attorney or limited power of defense attorney. A general power of defense attorney acts on behalf of the principal in any and all matters, as allowed by the state. The agent under a general POA agreement may be authorized to take care of issues such as handling bank accounts, signing checks, selling property and assets like stocks, f A limited power of defense attorney gives the agent the power to act on behalf of the principal in specific matters or events. For example, the limited POA may explicitly state that the agent is only allowed to manage the principal's long term accounts. A limited POA may also be limited to a specific period of time (e.g., if the principal will be out of the country for, say, two years). Most schultz of defense attorney documents allow an agent to represent the principal in all property and financial matters as long as the principals mental state of mind is good. If a situation occurs where the principal becomes incapable of making decisions for him or herself, the POA agreement would automatically end. However, someone who wants the POA to remain in effect after the persons health deteriorates would need to sign a durable power of defense attorney (DPOA). Comment VTE Prophylaxis Ordered VTE Prophylaxis Devices: Yes VTE Pharmacological Prophylaxi: Contraindicated Assessment/Plan Assessment/Plan IMPRESSION: ACUTE Congestive heart failure with cardiomegaly and pulmonary edema. 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 Involvement of the adjacent posterolateral right rib appears be present with associated destructive findings. pet SCAN 12/02 associated 6th rib fracture. cachexia sepsis PLAN emperic iv rocephin, zithromax consult PULM COVID 19 PUI consult oncology CONSULT GI IV PROTONIX ADMIT Justifications for Admission General Conditions Elevated Lactate?: Yes Justification for admission: Patient has tachycardia (> 100 beats per minute) or hypotension (SBP < 90 mm Hg) leading to inadequate systemic perfusion as indicated by lactate of greater or equal to 2.5 mmol/L. Other Justification IAN CHAPMAN MD Jun 07, 2020 08:59
[2020-06-07] MEDS ORDERED: FLU VACC QS 2020-21(6MOS+)/PF 0.5 ML SYRINGE. VAX IM ONE (09:00)
[2020-06-07] MEDS: MAGNESIUM OXIDE 400 MG TABLET PO SCH ×2 (09:42→21:39)
--- NOTE | 2020-06-07 11:13 | NUR ---
SW following. Spoke with RN and reviewed chart. Pt from home alone. SW consulted for discharge planning. Pt currently on 3l 02, regular diet, COVID pending. Spoke with pt who is a/o and able to make needs known. Pt pleasant and cooperative. Pt has had [facility] in the past and is agreeable to HH again at discharge if needed. SW completed patient choice of vendor form to reflect pt's HH preference. PT/OT to evaluate. KAREN following for discharge planning. Addendum: 06/07/20 at 1117 by LUCIANA JONES Pt confirmed she has home 02. Pt is on IV Rocephin at this time.
[2020-06-07] MEDS: PANTOPRAZOLE IV PUSH 40 MG VIAL. IVP SCH (18:34)
[2020-06-07] MEDS: cefTRIAXone IV Push 1 GM VIAL. IVP SCH (21:37)
[2020-06-07] MEDS: AZITHROMYCIN 500 MG in IV NORMAL SALINE 250ML 250 ML IV SCH (21:37)
[2020-06-07] MEDS: LACTOBACILLUS RHAMNOSUS GG 1 CAPSULE. PO SCH (21:39)
[2020-06-07] MEDS: MAGNESIUM SULFATE 2GM 50 ML IV SCH (23:00)
[2020-06-08] MEDS: ENOXAPARIN 30 MG/0.3 ML SYRINGE. SQ SCH ×2 (00:19→20:55)
[2020-06-08 03:00] VITALS: BP 145/91
[2020-06-08 06:09] LABS: BASO % 1 % (0-3); EOS # 0.3 x10^3/uL (0.0-0.7); EOS % 5 % (0-3); HEMATOCRIT 25.4 % (36.0-47.0); HEMOGLOBIN 8.3 g/dL (12.0-15.5); LYMPH # 0.4 x10^3/uL (1.0-4.8); LYMPH % 8 % (24-48); MEAN CORPUSCULAR HEMOGLOBIN 25 pg (25-35); MEAN CORPUSCULAR HGB CONC 33 g/dL (31-37); MEAN CORPUSCULAR VOLUME 77 fL (79-100); MONO # 0.5 x10^3/uL (0.0-1.1); MONO % 10 % (0-9); NEUT % 76 % (31-73); PLATELET COUNT 286 x10^3/uL (140-400); RED BLOOD COUNT 3.32 x10^6/uL (3.50-5.40); RED CELL DISTRIBUTION WIDTH 21.4 % (11.5-14.5); WHITE BLOOD COUNT 5.3 x10^3/uL (4.0-11.0)
[2020-06-08 06:38] LABS: ALBUMIN/GLOBULIN RATIO 0.4 (1.0-1.7); CALCIUM 8.8 mg/dL (8.5-10.1); CREATININE 0.6 mg/dL (0.6-1.0); GFR 95.5; POTASSIUM 4.2 mmol/L (3.5-5.1); TOTAL BILIRUBIN 0.3 mg/dL (0.2-1.0); TOTAL PROTEIN 7.1 g/dL (6.4-8.2)
[2020-06-08 07:05] VITALS: BP 139/63
[2020-06-08] MEDS: LACTOBACILLUS RHAMNOSUS GG 1 CAPSULE. PO SCH ×2 (08:57→20:54)
[2020-06-08] MEDS: MAGNESIUM OXIDE 400 MG TABLET PO SCH ×2 (08:57→20:55)
[2020-06-08] MEDS: PANTOPRAZOLE IV PUSH 40 MG VIAL. IVP SCH (08:58)
--- NOTE | 2020-06-08 09:28 | PDOC ---
PROGRESS NOTES Date of Service: DATE: 06/08/20 TIME: 09:28 Chief Complaint Chief Complaint VTE Prophylaxis Ordered VTE Prophylaxis Devices: Yes VTE Pharmacological Prophylaxi: Contraindicated Assessment/Plan Assessment/Plan IMPRESSION: ACUTE Congestive heart failure with cardiomegaly and pulmonary edema. 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 Involvement of the adjacent posterolateral right rib appears be present with associated destructive findings. pet SCAN 12/02 associated 6th rib fracture. cachexia sepsis PLAN emperic iv rocephin, zithromax consult PULM COVID 19 PUI consult oncology CONSULT GI IV PROTONIX resp isolation ADMIT 38 min pt exam, chart review, > 50% of time spent with exam, chart review, pt care coordination Justifications for Admission Justifications for Admission General Conditions Elevated Lactate?: Yes Justification for admission: Patient has tachycardia (> 100 beats per minute) or hypotension (SBP < 90 mm Hg) leading to inadequate systemic perfusion as indicated by lactate of greater or equal to 2.5 mmol/L. Other Justification History of Present Illness History of Present Illness Identification/Chief Complaint Chief Complaint SEEN IN ER WITH COUGH , 85-year-old female past medical history significant for stage 4 lung cancer, COPD with tobacco dependence, CAD, atrial fibrillation on eliquis and hypertension, presents the ED with complaints of shortness of breath for the past few days with anorexia, sore throat and productive cough. Patient states she had a stress test and lower extremity duplex ultrasound by primary care physician. EMR was reviewed lower extremity duplex showed no evidence of DVT. Stress test showed no active ischemia, with atrial fibrillation. 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 FHX COPD Cardiovascular: Hyperlipidemia Pulmonary: Bronchitis, COPD Psych: No pertinent hx Musculoskeletal: Osteoarthritis Endocrine: No pertinent hx Family History Family History: Chronic Bronchitis, Hypertension Social History Smoke: Quit ALCOHOL: none Drugs: None Current Problem List Problem List Problems Medical Problems: (1) CAP (community acquired pneumonia) Status: Acute (2) CHF (congestive heart failure) Status: Acute Vitals Vitals Vital Signs Date Time Temp Pulse Resp B/P (MAP) Pulse Ox O2 Delivery O2 Flow Rate FiO2 06/08/20 07:05 100.3 85 22 139/63 (88) 96 3.0 100.3 06/08/20 03:00 Nasal Cannula Physical Exam Physical Exam Constitutional: thin/frail, no acute distress, HENT: Normocephalic, atraumatic, bilateral external ears normal, oropharynx moist, no oral exudates or erythema, nose normal. [] Eyes: EOMI, conjunctiva normal, no discharge. [] Neck: Normal range of motion, supple, no stridor. [] Cardiovascular:Heart rate regular rhythm, no murmur [] Lungs & Thorax: Bilateral rhonchi Abdomen: Bowel sounds normal, soft, no tenderness, no masses, no pulsatile masses. [] Skin: Warm, dry, pale appearing Back: No tenderness, no CVA tenderness. [] Extremities: No tenderness, no cyanosis, no clubbing, ROM intact, no edema. [] Neurologic: Alert and oriented X 3, normal motor function, normal sensory function, no focal deficits noted. [] Psychologic: Affect normal, judgment normal, mood normal. [] Heart: RRR Breasts: Not examined Abdomen: Soft Rectal Exam: not examined PELVIC: Examination not indicated Extremities: No cyanosis Neuro: Normal speech, Cranial nerves 3-12 NL Psych/Mental Status: Mental status NL, Mood NL General: Alert, Oriented X3, Cooperative, No acute distress Lungs: Clear Abdomen: Soft, No tenderness Extremities: No cyanosis Labs LABS Laboratory Tests Test 06/08/20 05:45 White Blood Count 5.3 x10^3/uL (4.0-11.0) Red Blood Count 3.32 x10^6/uL (3.50-5.40) Hemoglobin 8.3 g/dL (12.0-15.5) Hematocrit 25.4 % (36.0-47.0) Mean Corpuscular Volume 77 fL (79-100) Mean Corpuscular Hemoglobin 25 pg (25-35) Mean Corpuscular Hemoglobin Concent 33 g/dL (31-37) Red Cell Distribution Width 21.4 % (11.5-14.5) Platelet Count 286 x10^3/uL (140-400) Neutrophils (%) (Auto) 76 % (31-73) Lymphocytes (%) (Auto) 8 % (24-48) Monocytes (%) (Auto) 10 % (0-9) Eosinophils (%) (Auto) 5 % (0-3) Basophils (%) (Auto) 1 % (0-3) Neutrophils # (Auto) 4.0 x10^3/uL (1.8-7.7) Lymphocytes # (Auto) 0.4 x10^3/uL (1.0-4.8) Monocytes # (Auto) 0.5 x10^3/uL (0.0-1.1) Eosinophils # (Auto) 0.3 x10^3/uL (0.0-0.7) Basophils # (Auto) 0.0 x10^3/uL (0.0-0.2) Sodium Level 136 mmol/L (136-145) Potassium Level 4.2 mmol/L (3.5-5.1) Chloride Level 102 mmol/L (98-107) Carbon Dioxide Level 27 mmol/L (21-32) Anion Gap 7 (6-14) Blood Urea Nitrogen 9 mg/dL (7-20) Creatinine 0.6 mg/dL (0.6-1.0) Estimated GFR (Cockcroft-Gault) 95.5 BUN/Creatinine Ratio 15 (6-20) Glucose Level 94 mg/dL (70-99) Calcium Level 8.8 mg/dL (8.5-10.1) Total Bilirubin 0.3 mg/dL (0.2-1.0) Aspartate Amino Transf (AST/SGOT) 17 U/L (15-37) Alanine Aminotransferase (ALT/SGPT) 8 U/L (14-59) Alkaline Phosphatase 65 U/L (46-116) Total Protein 7.1 g/dL (6.4-8.2) Albumin 2.0 g/dL (3.4-5.0) Albumin/Globulin Ratio 0.4 (1.0-1.7) Assessment and Plan Assessmemt and Plan Problems Medical Problems: (1) CAP (community acquired pneumonia) Status: Acute (2) CHF (congestive heart failure) Status: Acute (3) Sepsis Status: Acute (4) Symptomatic anemia Status: Acute Comment Review of Relevant I have reviewed the following items nik (where applicable) has been applied. Labs Laboratory Tests Test 06/06/20 20:30 06/06/20 21:55 06/06/20 23:51 06/07/20 07:05 White Blood Count 6.8 x10^3/uL (4.0-11.0) 4.7 x10^3/uL (4.0-11.0) Red Blood Count 2.36 x10^6/uL (3.50-5.40) 3.14 x10^6/uL (3.50-5.40) Hemoglobin 5.2 g/dL (12.0-15.5) 7.9 g/dL (12.0-15.5) Hematocrit 16.8 % (36.0-47.0) 24.2 % (36.0-47.0) Mean Corpuscular Volume 71 fL (79-100) 77 fL (79-100) Mean Corpuscular Hemoglobin 22 pg (25-35) 25 pg (25-35) Mean Corpuscular Hemoglobin Concent 31 g/dL (31-37) 33 g/dL (31-37) Red Cell Distribution Width 19.3 % (11.5-14.5) 20.2 % (11.5-14.5) Platelet Count 376 x10^3/uL (140-400) 285 x10^3/uL (140-400) Neutrophils (%) (Auto) 88 % (31-73) 77 % (31-73) Lymphocytes (%) (Auto) 4 % (24-48) 10 % (24-48) Monocytes (%) (Auto) 7 % (0-9) 12 % (0-9) Eosinophils (%) (Auto) 0 % (0-3) 1 % (0-3) Basophils (%) (Auto) 1 % (0-3) 0 % (0-3) Neutrophils # (Auto) 6.0 x10^3/uL (1.8-7.7) 3.7 x10^3/uL (1.8-7.7) Lymphocytes # (Auto) 0.3 x10^3/uL (1.0-4.8) 0.5 x10^3/uL (1.0-4.8) Monocytes # (Auto) 0.4 x10^3/uL (0.0-1.1) 0.6 x10^3/uL (0.0-1.1) Eosinophils # (Auto) 0.0 x10^3/uL (0.0-0.7) 0.1 x10^3/uL (0.0-0.7) Basophils # (Auto) 0.0 x10^3/uL (0.0-0.2) 0.0 x10^3/uL (0.0-0.2) Segmented Neutrophils % 86 % (35-66) Band Neutrophils % 3 % (0-9) Lymphocytes % 2 % (24-48) Monocytes % 8 % (0-10) Basophils % 1 % (0-3) Platelet Estimate Adequate (ADEQUATE) Hypochromasia Mod Poikilocytosis Slight Anisocytosis Slight Microcytosis Mod Ovalocytes Few Sodium Level 131 mmol/L (136-145) 138 mmol/L (136-145) Potassium Level 4.2 mmol/L (3.5-5.1) 4.0 mmol/L (3.5-5.1) Chloride Level 96 mmol/L (98-107) 103 mmol/L (98-107) Carbon Dioxide Level 25 mmol/L (21-32) 29 mmol/L (21-32) Anion Gap 10 (6-14) 6 (6-14) Blood Urea Nitrogen 10 mg/dL (7-20) 9 mg/dL (7-20) Creatinine 0.8 mg/dL (0.6-1.0) 0.6 mg/dL (0.6-1.0) Estimated GFR (Cockcroft-Gault) 68.5 95.5 BUN/Creatinine Ratio 13 (6-20) Glucose Level 166 mg/dL (70-99) 95 mg/dL (70-99) Lactic Acid Level 3.9 mmol/L (0.4-2.0) 2.3 mmol/L (0.4-2.0) Calcium Level 8.6 mg/dL (8.5-10.1) 8.4 mg/dL (8.5-10.1) Magnesium Level 1.9 mg/dL (1.8-2.4) 2.3 mg/dL (1.8-2.4) Total Bilirubin 0.2 mg/dL (0.2-1.0) Aspartate Amino Transf (AST/SGOT) 21 U/L (15-37) Alanine Aminotransferase (ALT/SGPT) 12 U/L (14-59) Alkaline Phosphatase 70 U/L (46-116) Troponin I Quantitative < 0.017 ng/mL (0.000-0.055) RQ-Kew-Y-Type Natriuretic Peptide 1795 pg/mL (0-449) Total Protein 7.7 g/dL (6.4-8.2) Albumin 2.3 g/dL (3.4-5.0) Albumin/Globulin Ratio 0.4 (1.0-1.7) O2 Saturation 98 % (92-99) Arterial Blood pH 7.47 (7.35-7.45) Arterial Blood pCO2 at Patient Temp 32 mmHg (35-46) Arterial Blood pO2 at Patient Temp 85 mmHg (65-108) Arterial Blood HCO3 23 mmol/L (21-28) Arterial Blood Base Excess -1 mmol/L (-3-3) FiO2 32 Phosphorus Level 3.1 mg/dL (2.6-4.7) Ferritin 16 ng/mL (8-252) Test 06/08/20 05:45 White Blood Count 5.3 x10^3/uL (4.0-11.0) Red Blood Count 3.32 x10^6/uL (3.50-5.40) Hemoglobin 8.3 g/dL (12.0-15.5) Hematocrit 25.4 % (36.0-47.0) Mean Corpuscular Volume 77 fL (79-100) Mean Corpuscular Hemoglobin 25 pg (25-35) Mean Corpuscular Hemoglobin Concent 33 g/dL (31-37) Red Cell Distribution Width 21.4 % (11.5-14.5) Platelet Count 286 x10^3/uL (140-400) Neutrophils (%) (Auto) 76 % (31-73) Lymphocytes (%) (Auto) 8 % (24-48) Monocytes (%) (Auto) 10 % (0-9) Eosinophils (%) (Auto) 5 % (0-3) Basophils (%) (Auto) 1 % (0-3) Neutrophils # (Auto) 4.0 x10^3/uL (1.8-7.7) Lymphocytes # (Auto) 0.4 x10^3/uL (1.0-4.8) Monocytes # (Auto) 0.5 x10^3/uL (0.0-1.1) Eosinophils # (Auto) 0.3 x10^3/uL (0.0-0.7) Basophils # (Auto) 0.0 x10^3/uL (0.0-0.2) Sodium Level 136 mmol/L (136-145) Potassium Level 4.2 mmol/L (3.5-5.1) Chloride Level 102 mmol/L (98-107) Carbon Dioxide Level 27 mmol/L (21-32) Anion Gap 7 (6-14) Blood Urea Nitrogen 9 mg/dL (7-20) Creatinine 0.6 mg/dL (0.6-1.0) Estimated GFR (Cockcroft-Gault) 95.5 BUN/Creatinine Ratio 15 (6-20) Glucose Level 94 mg/dL (70-99) Calcium Level 8.8 mg/dL (8.5-10.1) Total Bilirubin 0.3 mg/dL (0.2-1.0) Aspartate Amino Transf (AST/SGOT) 17 U/L (15-37) Alanine Aminotransferase (ALT/SGPT) 8 U/L (14-59) Alkaline Phosphatase 65 U/L (46-116) Total Protein 7.1 g/dL (6.4-8.2) Albumin 2.0 g/dL (3.4-5.0) Albumin/Globulin Ratio 0.4 (1.0-1.7) Laboratory Tests Test 06/08/20 05:45 White Blood Count 5.3 x10^3/uL (4.0-11.0) Red Blood Count 3.32 x10^6/uL (3.50-5.40) Hemoglobin 8.3 g/dL (12.0-15.5) Hematocrit 25.4 % (36.0-47.0) Mean Corpuscular Volume 77 fL (79-100) Mean Corpuscular Hemoglobin 25 pg (25-35) Mean Corpuscular Hemoglobin Concent 33 g/dL (31-37) Red Cell Distribution Width 21.4 % (11.5-14.5) Platelet Count 286 x10^3/uL (140-400) Neutrophils (%) (Auto) 76 % (31-73) Lymphocytes (%) (Auto) 8 % (24-48) Monocytes (%) (Auto) 10 % (0-9) Eosinophils (%) (Auto) 5 % (0-3) Basophils (%) (Auto) 1 % (0-3) Neutrophils # (Auto) 4.0 x10^3/uL (1.8-7.7) Lymphocytes # (Auto) 0.4 x10^3/uL (1.0-4.8) Monocytes # (Auto) 0.5 x10^3/uL (0.0-1.1) Eosinophils # (Auto) 0.3 x10^3/uL (0.0-0.7) Basophils # (Auto) 0.0 x10^3/uL (0.0-0.2) Sodium Level 136 mmol/L (136-145) Potassium Level 4.2 mmol/L (3.5-5.1) Chloride Level 102 mmol/L (98-107) Carbon Dioxide Level 27 mmol/L (21-32) Anion Gap 7 (6-14) Blood Urea Nitrogen 9 mg/dL (7-20) Creatinine 0.6 mg/dL (0.6-1.0) Estimated GFR (Cockcroft-Gault) 95.5 BUN/Creatinine Ratio 15 (6-20) Glucose Level 94 mg/dL (70-99) Calcium Level 8.8 mg/dL (8.5-10.1) Total Bilirubin 0.3 mg/dL (0.2-1.0) Aspartate Amino Transf (AST/SGOT) 17 U/L (15-37) Alanine Aminotransferase (ALT/SGPT) 8 U/L (14-59) Alkaline Phosphatase 65 U/L (46-116) Total Protein 7.1 g/dL (6.4-8.2) Albumin 2.0 g/dL (3.4-5.0) Albumin/Globulin Ratio 0.4 (1.0-1.7) Microbiology 06/06/20 Blood Culture - Preliminary, Resulted NO GROWTH AFTER 1 DAY Medications Current Medications Ceftriaxone Sodium (Rocephin) 1 gm 1X ONCE IVP Last administered on 06/06/20at 21:00; Start 06/06/20 at 20:45; Stop 06/06/20 at 20:46; Status DC Azithromycin 250 ml @ 250 mls/hr 1X ONCE IV Last administered on 06/06/20at 21:00; Start 06/06/20 at 20:45; Stop 06/06/20 at 21:44; Status DC Sodium Chloride 250 ml @ 250 mls/hr 1X ONCE IV Last administered on 06/06/20at 21:00; Start 06/06/20 at 20:45; Stop 06/06/20 at 21:44; Status DC Nitroglycerin (Nitrostat) 0.4 mg PRN Q5MIN PRN SL CHEST PAIN; Start 06/06/20 at 21:45 Sennosides (Senna) 17.2 mg PRN BID PRN PO CONSTIPATION; Start 06/06/20 at 22:30 Docusate Sodium (Colace) 100 mg PRN DAILY PRN PO HARD STOOLS; Start 06/06/20 at 22:30 Ondansetron HCl (Zofran) 4 mg PRN Q6HRS PRN IVP NAUSEA/VOMITING; Start 06/06/20 at 22:30 Potassium Chloride (Klor-Con) 40 meq 1X PRN PRN PO PER PROTOCOL; Start 06/06/20 at 22:30 Magnesium Oxide (Magnesium Oxide) 400 mg BID PO Last administered on 06/08/20at 08:57; Start 06/07/20 at 09:00; Stop 06/08/20 at 21:01 Potassium Chloride/Water 100 ml @ 100 mls/hr Q1H IV ; Start 06/06/20 at 23:00; Stop 06/07/20 at 02:59; Status DC Magnesium Sulfate 50 ml @ 25 mls/hr Q24H IV ; Start 06/06/20 at 23:00; Stop 06/09/20 at 00:59 Potassium Chloride/Water 100 ml @ 100 mls/hr PRN Q1HR PRN IV low k; Start 06/06/20 at 22:30 Dextrose (Dextrose 50%-Water Syringe) 12.5 gm PRN Q15MIN PRN IV SEE COMMENTS; Start 06/06/20 at 22:30 Acetaminophen (Tylenol) 650 mg PRN Q4HRS PRN PO TEMP OVER 100.4F OR MILD PAIN Last administered on 06/07/20at 21:39; Start 06/06/20 at 22:30 Enoxaparin Sodium (Lovenox 30mg Syringe) 30 mg Q24H SQ Last administered on 06/08/20at 00:19; Start 06/06/20 at 22:30 Azithromycin 500 mg/Sodium Chloride 250 ml @ 250 mls/hr Q24H IV Last administered on 06/07/20at 21:37; Start 06/07/20 at 21:00 Ceftriaxone Sodium (Rocephin) 1 gm Q24H IVP Last administered on 06/07/20at 21:37; Start 06/07/20 at 20:00 Influenza Virus Vaccine Quadrival (Fluzone Quad Syringe) 0.5 ml ONCE ONCE VAX IM Last administered on 06/07/20at 09:46; Start 06/07/20 at 09:00; Stop 06/07/20 at 09:01; Status DC Lactobacillus Rhamnosus (Culturelle) 1 cap BID PO Last administered on 06/08/20at 08:57; Start 06/07/20 at 21:00 Pantoprazole Sodium (PROTONIX VIAL for IV PUSH) 40 mg DAILYAC IVP Last administered on 06/08/20at 08:58; Start 06/07/20 at 17:00 Active Scripts Active Reported Meclizine Hcl 25 Mg Tablet 25 Mg PO PRN PRN Citalopram Hbr (Citalopram Hydrobromide) 40 Mg Tablet 40 Mg PO DAILY Folic Acid 0.8 Mg Capsule 0.4 Mg PO DAILY Dok (Docusate Sodium) 100 Mg Capsule 100 Mg PO DAILY Coq-10 (Ubidecarenone) 100 Mg Capsule 100 Mg PO DAILY Calcium 1,000 + D3 Caplet (Calcium Carbonate/Vitamin D3) 1 Each Tablet 1 Tab PO DAILY 30 Days Atorvastatin Calcium 40 Mg Tablet 1 Tab PO DAILY Aspirin 81 Mg Tab.chew 1 Tab PO DAILY Eliquis (Apixaban) 5 Mg Tablet 5 Mg PO BID Alendronate Sodium 70 Mg Tablet 1 Tab PO WEEKLY Ventolin Hfa Inhaler (Albuterol Sulfate) 18 Gm Hfa.aer.ad 2 Puff INH PRN Q4-6HRS PRN Vitamin B-12 (Cyanocobalamin (Vitamin B-12)) 500 Mcg Tablet 1 Tab PO DAILY 30 Days B Complex (Vitamin B Complex) 1 Each Tablet 1 Tab PO DAILY 30 Days Vesicare (Solifenacin Succinate) 10 Mg Tablet 1 Tab PO DAILY 30 Days Polyethylene Glycol 3350 2,500 Gm Powder 17 Gm PO DAILY Pantoprazole Sodium (Pantoprazole Sodium) 40 Mg Tablet.dr 40 Mg PO DAILYAC Multi Vitamin Daily (Multivitamin) 1 Each Tablet 1 Tab PO DAILY 30 Days Metoprolol Tartrate 25 Mg Tablet 1 Tab PO BID Hydralazine Hcl 10 Mg Tablet 2 Tab PO TID Furosemide 20 Mg Tablet 1 Tab PO DAILY Fish Oil 1,000 Mg Softgel ([place]-3 Fatty Acids/Fish Oil) 1 Each Capsule 1 Cap PO DAILY 30 Days Ferrous Sulfate 325 Mg Tablet 1 Tab PO DAILY Vitals/I & O Vital Sign - Last 24 Hours 06/07/20 06/07/20 06/07/20 06/07/20 11:05 15:05 19:00 20:00 Temp 98.5 97.1 98.0 98.5 97.1 98.0 Pulse 89 81 87 Resp 20 19 18 B/P (MAP) 149/64 (92) 155/67 (96) 156/87 (110) Pulse Ox 100 100 96 O2 Flow Rate 3.0 3.0 3.0 3.0 06/07/20 06/08/20 06/08/20 22:31 03:00 07:05 Temp 98.1 98.9 100.3 98.1 98.9 100.3 Pulse 88 82 85 Resp 18 18 22 B/P (MAP) 156/70 (98) 145/91 (109) 139/63 (88) Pulse Ox 94 98 96 O2 Delivery Room Air Nasal Cannula O2 Flow Rate 3.0 3.0 3.0 Intake and Output 06/07/20 06/07/20 06/08/20 15:00 23:00 07:00 Intake Total 0 ml Output Total 550 ml Balance -550 ml Justicifation of Admission Dx: Justifications for Admission: Justification of Admission Dx: Yes IAN CHAPMAN MD Jun 08, 2020 09:28
[2020-06-08 11:05] VITALS: BP 122/58
--- NOTE | 2020-06-08 11:06 | PDOC2 ---
GI CONSULT Date of Service: DATE: 06/08/20 TIME: 10:47 Reason For Consult: severe anemia HPI: HPI: Very pleasant 85 y/o female who we have seen in the past. To ER w/ SOA, cough, and fever. BNP elevated and CXR w/ CHF. Breathing better this morning. Noted w/ Hgb 5.2, MCV 71, normal BUN. Hgb improved to 8.3 s/p transfusion 2 units pRBCs. She reports hematuria x 3 days last week - last on Friday. Denies hematemesis, hematochezia, and melena. H/o GERD controlled w/ pantoprazole QD and h/o constipation controlled w/ Miralax QD. Denies dysphagia (though h/o intermittent dysphagia w/ meat and big pills - previously reported barium swallow in the past @ [facility]), n/v, abd pain, and diarrhea. Has lost ~15 pounds since lung cancer diagnosis. Appetite wasn't the greatest the last few days at home but got better - now just can't eat the food here because it's cold. Reports h/o diverticulitis treated as outpt. S/p cholecystectomy for stone. No liver or pancreas history. EGD 02/19/17 for previous hemorrhagic gastritis due to Coumadin toxicity: mild improving gastritis w/o bleeding, no ulcers. Antral biopsy negative for H. pylori. Colonoscopy 10/01/18 for positive Cologuard test, CRC screen, and h/o diverticulosis: severe diverticulosis w/ stricture in sigmoid colon, small sessile polyps in ascending colon (adenoma) and sigmoid colon (hyperplastic), pedunculated hyperplastic polyp in distal sigmoid colon. Chronic anemia on iron QD (?and still B12) - mix of chronic illness and iron deficiency in 11/2019. On Eliquis and ASA. No NSAIDs. Has hydrocodone available for bone pain (rib) related to cancer. Says next step for cancer treatment is to recheck PET scan later this month or early next. PMH: PMH: A Fib, CAD, lung cancer, HTN, HLD, OA, osteoporosis, depression/anxiety, anemia, GERD, constipation, diverticular disease CABG, cholecystectomy, hysterectomy, lung biopsy, radiation FH: Family History: No pertinent hx Social History: Smoke: Quit ALCOHOL: none Drugs: None ROS: GEN: +fever HEENT: Denies blurred vision, sore throat CV: Denies chest pain RESP: +SOA +cough GI: Per HPI : +hematuria ENDO: +weight loss NEURO: Denies confusion, dizziness MSK: D+rib pain SKIN: Denies jaundice, pruritus Vitals: Vitals: Vital Signs Date Time Temp Pulse Resp B/P (MAP) Pulse Ox O2 Delivery O2 Flow Rate FiO2 06/08/20 08:00 3.0 06/08/20 07:05 100.3 85 22 139/63 (88) 96 100.3 06/08/20 03:00 Nasal Cannula Labs: Labs: Laboratory Tests Test 06/08/20 05:45 White Blood Count 5.3 x10^3/uL (4.0-11.0) Red Blood Count 3.32 x10^6/uL (3.50-5.40) Hemoglobin 8.3 g/dL (12.0-15.5) Hematocrit 25.4 % (36.0-47.0) Mean Corpuscular Volume 77 fL (79-100) Mean Corpuscular Hemoglobin 25 pg (25-35) Mean Corpuscular Hemoglobin Concent 33 g/dL (31-37) Red Cell Distribution Width 21.4 % (11.5-14.5) Platelet Count 286 x10^3/uL (140-400) Neutrophils (%) (Auto) 76 % (31-73) Lymphocytes (%) (Auto) 8 % (24-48) Monocytes (%) (Auto) 10 % (0-9) Eosinophils (%) (Auto) 5 % (0-3) Basophils (%) (Auto) 1 % (0-3) Neutrophils # (Auto) 4.0 x10^3/uL (1.8-7.7) Lymphocytes # (Auto) 0.4 x10^3/uL (1.0-4.8) Monocytes # (Auto) 0.5 x10^3/uL (0.0-1.1) Eosinophils # (Auto) 0.3 x10^3/uL (0.0-0.7) Basophils # (Auto) 0.0 x10^3/uL (0.0-0.2) Sodium Level 136 mmol/L (136-145) Potassium Level 4.2 mmol/L (3.5-5.1) Chloride Level 102 mmol/L (98-107) Carbon Dioxide Level 27 mmol/L (21-32) Anion Gap 7 (6-14) Blood Urea Nitrogen 9 mg/dL (7-20) Creatinine 0.6 mg/dL (0.6-1.0) Estimated GFR (Cockcroft-Gault) 95.5 BUN/Creatinine Ratio 15 (6-20) Glucose Level 94 mg/dL (70-99) Calcium Level 8.8 mg/dL (8.5-10.1) Total Bilirubin 0.3 mg/dL (0.2-1.0) Aspartate Amino Transf (AST/SGOT) 17 U/L (15-37) Alanine Aminotransferase (ALT/SGPT) 8 U/L (14-59) Alkaline Phosphatase 65 U/L (46-116) Total Protein 7.1 g/dL (6.4-8.2) Albumin 2.0 g/dL (3.4-5.0) Albumin/Globulin Ratio 0.4 (1.0-1.7) Allergies: Coded Allergies: No Known Drug Allergies (Unverified , 05/04/20) Medications: Current Medications Medications (Trade) Dose Ordered Sig/Andreas Route PRN Reason Start Time Stop Time Status Last Admin Dose Admin Azithromycin 500 mg/Sodium Chloride 250 ml @ 250 mls/hr Q24H IV 06/07/20 21:00 06/07/20 21:37 Ceftriaxone Sodium (Rocephin) 1 gm Q24H IVP 06/07/20 20:00 06/07/20 21:37 Lactobacillus Rhamnosus (Culturelle) 1 cap BID PO 06/07/20 21:00 06/08/20 08:57 Pantoprazole Sodium (PROTONIX VIAL for IV PUSH) 40 mg DAILYAC IVP 06/07/20 17:00 06/08/20 08:58 Imaging: Imaging: CXR 06/06 IMPRESSION: Congestive heart failure with cardiomegaly and pulmonary edema. No pleural effusions. PE: GEN: in COVID precautions HEENT: Atraumatic, PERRL LUNGS: quiet wheezing HEART: irregular ABD: NABS, S/ND/NT EXTREMITY: No edema SKIN: No rashes, no jaundice NEURO/PSYCH: A & O 3 A/P: A/P: SOA, cough, fever - CXR w/ CHF, additional h/o lung cancer s/p radiation - COVID test pending ACD/FILI - Hgb improved s/p transfusions; on iron at home Hematuria - per primary GERD, h/o hemorrhagic gastritis - on PPI CRC screen, h/o adenomatous polyp - UTD (09/2018) H/o constipation - controlled w/ Miralax Severe diverticulosis S/p cholecystectomy CAD, A Fib - on Eliquis and ASA -- Denies obvious GI bleeding, Hgb improved w/ transfusions. Can change to PO PPI since eating regular food. Resume iron and Miralax. Observe from GI standpoint. MATTHEW TENA Jun 08, 2020 11:06
[2020-06-08] MEDS ORDERED: POLYETHYLENE GLYCOL 3350 17 GM PACKET. PO PRN (11:15)
[2020-06-08] MEDS: POLYETHYLENE GLYCOL 3350 17 GM PACKET. PO SCH (12:06)
[2020-06-08] MEDS: ACETAMINOPHEN 325 MG TABLET. PO PRN (12:06)
[2020-06-08] MEDS: FERROUS SULFATE 325 MG TABLET. PO SCH ×2 (12:06→20:55)
--- NOTE | 2020-06-08 13:28 | PDOC2 ---
CONSULT Date of Consult Date of Consult DATE: 06/08/20 TIME: 13:22 Reason for Consult Reason for Consult: Lung cancer Referring Physician Referring Physician: Dr. Stafford Identification/Chief Complaint Chief Complaint I have pneumonia Source Source: Chart review, Patient History of Present Illness Reason for Visit: Alda Headley is an 85-year-old female with history of lung cancer who has been admitted after reporting worsening shortness of breath and productive cough. She was diagnosed in 11/2019 when she was hospitalized at [facility] with right lower chest pain. She reported associated cough and weight loss of 15 pounds in 2-4 weeks prior. She underwent a chest x-ray that revealed a mass-like infiltrate in the right chest. She received a CT scan of the chest on 11/19/2019 which revealed 5 x 4.1 x 5.6 cm right lower lobe mass extends posteriorly between the right posterior 6th and 7th ribs with adjacent fracture of the rightposterior 6th rib. There was also right hilar lymphadenopathy. 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 PET obtained on 12/10/19 showed a right lower lobe mass with SUV of 7.4 abutting the pleural surface with focal uptake involving the posterolateral right sixth rib at the site of destructive change. She saw Dr Hyman in follow-up and was not interested in systemic therapy. She saw Dr Valdes and received radiation therapy with 39 fractions for total dose of 7020 cGy completed on 02-18-20. Response assessment with repeat PET in 06/[address] Valdes at her most recent visit with him. She has now been admitted with worsening dyspnea. She denies fever, or chills. She reports increased yellow sputum production in cough. She notes that chest pain has improved after RT. She is interested in non-chemotherapy. She has been found to have anemia with Hb ~5.5 at presentation. She denies bloody stools, black stools or hemoptysis. Past Medical History Cardiovascular: Hyperlipidemia Pulmonary: Bronchitis, COPD Psych: No pertinent hx Musculoskeletal: Osteoarthritis Endocrine: No pertinent hx Family History Family History: Chronic Bronchitis, Hypertension Social History Quit ALCOHOL: none Drugs: None Current Problem List Problem List Problems Medical Problems: (1) CAP (community acquired pneumonia) Status: Acute (2) CHF (congestive heart failure) Status: Acute (3) Sepsis Status: Acute (4) Symptomatic anemia Status: Acute Current Medications Current Medications Current Medications Ceftriaxone Sodium (Rocephin) 1 gm 1X ONCE IVP Last administered on 06/06/20at 21:00; Start 06/06/20 at 20:45; Stop 06/06/20 at 20:46; Status DC Azithromycin 250 ml @ 250 mls/hr 1X ONCE IV Last administered on 06/06/20at 21:00; Start 06/06/20 at 20:45; Stop 06/06/20 at 21:44; Status DC Sodium Chloride 250 ml @ 250 mls/hr 1X ONCE IV Last administered on 06/06/20at 21:00; Start 06/06/20 at 20:45; Stop 06/06/20 at 21:44; Status DC Nitroglycerin (Nitrostat) 0.4 mg PRN Q5MIN PRN SL CHEST PAIN; Start 06/06/20 at 21:45 Sennosides (Senna) 17.2 mg PRN BID PRN PO CONSTIPATION; Start 06/06/20 at 22:30; Stop 06/08/20 at 11:08; Status DC Docusate Sodium (Colace) 100 mg PRN DAILY PRN PO HARD STOOLS; Start 06/06/20 at 22:30 Ondansetron HCl (Zofran) 4 mg PRN Q6HRS PRN IVP NAUSEA/VOMITING; Start 06/06/20 at 22:30 Potassium Chloride (Klor-Con) 40 meq 1X PRN PRN PO PER PROTOCOL; Start 06/06/20 at 22:30 Magnesium Oxide (Magnesium Oxide) 400 mg BID PO Last administered on 06/08/20at 08:57; Start 06/07/20 at 09:00; Stop 06/08/20 at 21:01 Potassium Chloride/Water 100 ml @ 100 mls/hr Q1H IV ; Start 06/06/20 at 23:00; Stop 06/07/20 at 02:59; Status DC Magnesium Sulfate 50 ml @ 25 mls/hr Q24H IV ; Start 06/06/20 at 23:00; Stop 06/09/20 at 00:59 Potassium Chloride/Water 100 ml @ 100 mls/hr PRN Q1HR PRN IV low k; Start 06/06/20 at 22:30 Dextrose (Dextrose 50%-Water Syringe) 12.5 gm PRN Q15MIN PRN IV SEE COMMENTS; Start 06/06/20 at 22:30 Acetaminophen (Tylenol) 650 mg PRN Q4HRS PRN PO TEMP OVER 100.4F OR MILD PAIN Last administered on 06/08/20at 12:06; Start 06/06/20 at 22:30 Enoxaparin Sodium (Lovenox 30mg Syringe) 30 mg Q24H SQ Last administered on 06/08/20at 00:19; Start 06/06/20 at 22:30 Azithromycin 500 mg/Sodium Chloride 250 ml @ 250 mls/hr Q24H IV Last ad ministered on 06/07/20at 21:37; Start 06/07/20 at 21:00 Ceftriaxone Sodium (Rocephin) 1 gm Q24H IVP Last administered on 06/07/20at 21:37; Start 06/07/20 at 20:00 Influenza Virus Vaccine Quadrival (Fluzone Quad Syringe) 0.5 ml ONCE ONCE VAX IM Last administered on 06/07/20at 09:46; Start 06/07/20 at 09:00; Stop 06/07/20 at 09:01; Status DC Lactobacillus Rhamnosus (Culturelle) 1 cap BID PO Last administered on 06/08/20at 08:57; Start 06/07/20 at 21:00 Pantoprazole Sodium (PROTONIX VIAL for IV PUSH) 40 mg DAILYAC IVP Last administered on 06/08/20at 08:58; Start 06/07/20 at 17:00; Stop 06/08/20 at 11:08; Status DC Polyethylene Glycol (miraLAX PACKET) 17 gm DAILY PO Last administered on 06/08/20at 12:06; Start 06/08/20 at 12:00 Polyethylene Glycol (miraLAX PACKET) 17 gm PRN DAILY PRN PO CONSTIPATION; Start 06/08/20 at 11:15 Pantoprazole Sodium (Protonix) 40 mg DAILYAC PO ; Start 06/09/20 at 07:30 Ferrous Sulfate (Feosol) 325 mg BID PO Last administered on 06/08/20at 12:06; Start 06/08/20 at 12:00 Active Scripts Active Reported Meclizine Hcl 25 Mg Tablet 25 Mg PO PRN PRN Citalopram Hbr (Citalopram Hydrobromide) 40 Mg Tablet 40 Mg PO DAILY Folic Acid 0.8 Mg Capsule 0.4 Mg PO DAILY Dok (Docusate Sodium) 100 Mg Capsule 100 Mg PO DAILY Coq-10 (Ubidecarenone) 100 Mg Capsule 100 Mg PO DAILY Calcium 1,000 + D3 Caplet (Calcium Carbonate/Vitamin D3) 1 Each Tablet 1 Tab PO DAILY 30 Days Atorvastatin Calcium 40 Mg Tablet 1 Tab PO DAILY Aspirin 81 Mg Tab.chew 1 Tab PO DAILY Eliquis (Apixaban) 5 Mg Tablet 5 Mg PO BID Alendronate Sodium 70 Mg Tablet 1 Tab PO WEEKLY Ventolin Hfa Inhaler (Albuterol Sulfate) 18 Gm Hfa.aer.ad 2 Puff INH PRN Q4-6HRS PRN Vitamin B-12 (Cyanocobalamin (Vitamin B-12)) 500 Mcg Tablet 1 Tab PO DAILY 30 Days B Complex (Vitamin B Complex) 1 Each Tablet 1 Tab PO DAILY 30 Days Vesicare (Solifenacin Succinate) 10 Mg Tablet 1 Tab PO DAILY 30 Days Polyethylene Glycol 3350 2,500 Gm Powder 17 Gm PO DAILY Pantoprazole Sodium (Pantoprazole Sodium) 40 Mg Tablet.dr 40 Mg PO DAILYAC Multi Vitamin Daily (Multivitamin) 1 Each Tablet 1 Tab PO DAILY 30 Days Metoprolol Tartrate 25 Mg Tablet 1 Tab PO BID Hydralazine Hcl 10 Mg Tablet 2 Tab PO TID Furosemide 20 Mg Tablet 1 Tab PO DAILY Fish Oil 1,000 Mg Softgel ([place]-3 Fatty Acids/Fish Oil) 1 Each Capsule 1 Cap PO DAILY 30 Days Ferrous Sulfate 325 Mg Tablet 1 Tab PO DAILY Allergies Allergies: Coded Allergies: No Known Drug Allergies (Unverified , 05/04/20) ROS General: No: Chills, Night Sweats PSYCHOLOGICAL ROS: No: Behavioral Disorder Eyes: No Blurry vision, No Decreased vision HEENT: No: Heacaches, Visual Changes ( ) Hematological and Lymphatic: No: Bleeding Problems, Brusing ENDOCRINE: YES: Malaise/lethargy; No: Mood Swings, Palpitations Respiratory: YES: Cough, Shortness of breath, SOB with excertion, Sputum Changes; No: Hemoptysis Cardiovascular: yes Chest Pain; No Palpitations Gastrointestinal: No Nausea, No Vomiting, No Diarrhea, No Constipation Genitourinary: No Dysuria, No Flank Pain Musculoskeletal: No Joint Swelling, No Muscle Pain Neurological: No Headaches, No Impaired Coord/balance Skin: No Dry Skin, No Rash Physical Exam General: Alert, Oriented X3 HEENT: Atraumatic, PERRLA Lungs: Normal air movement Heart: Regular rate, No murmurs Abdomen: Normal bowel sounds, Soft Extremities: No clubbing Skin: No rashes Neuro: Normal gait, Normal speech Psych/Mental Status: Mental status NL MUSCULOSKELETAL: No swelling Vitals VITALS Vital Signs Date Time Temp Pulse Resp B/P (MAP) Pulse Ox O2 Delivery O2 Flow Rate FiO2 06/08/20 11:05 99.5 94 25 122/58 (79) 99 3.0 99.5 06/08/20 03:00 Nasal Cannula Labs Labs Laboratory Tests Test 06/06/20 20:30 06/06/20 21:55 06/06/20 23:51 06/07/20 07:05 White Blood Count 6.8 x10^3/uL (4.0-11.0) 4.7 x10^3/uL (4.0-11.0) Red Blood Count 2.36 x10^6/uL (3.50-5.40) 3.14 x10^6/uL (3.50-5.40) Hemoglobin 5.2 g/dL (12.0-15.5) 7.9 g/dL (12.0-15.5) Hematocrit 16.8 % (36.0-47.0) 24.2 % (36.0-47.0) Mean Corpuscular Volume 71 fL (79-100) 77 fL (79-100) Mean Corpuscular Hemoglobin 22 pg (25-35) 25 pg (25-35) Mean Corpuscular Hemoglobin Concent 31 g/dL (31-37) 33 g/dL (31-37) Red Cell Distribution Width 19.3 % (11.5-14.5) 20.2 % (11.5-14.5) Platelet Count 376 x10^3/uL (140-400) 285 x10^3/uL (140-400) Neutrophils (%) (Auto) 88 % (31-73) 77 % (31-73) Lymphocytes (%) (Auto) 4 % (24-48) 10 % (24-48) Monocytes (%) (Auto) 7 % (0-9) 12 % (0-9) Eosinophils (%) (Auto) 0 % (0-3) 1 % (0-3) Basophils (%) (Auto) 1 % (0-3) 0 % (0-3) Neutrophils # (Auto) 6.0 x10^3/uL (1.8-7.7) 3.7 x10^3/uL (1.8-7.7) Lymphocytes # (Auto) 0.3 x10^3/uL (1.0-4.8) 0.5 x10^3/uL (1.0-4.8) Monocytes # (Auto) 0.4 x10^3/uL (0.0-1.1) 0.6 x10^3/uL (0.0-1.1) Eosinophils # (Auto) 0.0 x10^3/uL (0.0-0.7) 0.1 x10^3/uL (0.0-0.7) Basophils # (Auto) 0.0 x10^3/uL (0.0-0.2) 0.0 x10^3/uL (0.0-0.2) Segmented Neutrophils % 86 % (35-66) Band Neutrophils % 3 % (0-9) Lymphocytes % 2 % (24-48) Monocytes % 8 % (0-10) Basophils % 1 % (0-3) Platelet Estimate Adequate (ADEQUATE) Hypochromasia Mod Poikilocytosis Slight Anisocytosis Slight Microcytosis Mod Ovalocytes Few Sodium Level 131 mmol/L (136-145) 138 mmol/L (136-145) Potassium Level 4.2 mmol/L (3.5-5.1) 4.0 mmol/L (3.5-5.1) Chloride Level 96 mmol/L (98-107) 103 mmol/L (98-107) Carbon Dioxide Level 25 mmol/L (21-32) 29 mmol/L (21-32) Anion Gap 10 (6-14) 6 (6-14) Blood Urea Nitrogen 10 mg/dL (7-20) 9 mg/dL (7-20) Creatinine 0.8 mg/dL (0.6-1.0) 0.6 mg/dL (0.6-1.0) Estimated GFR (Cockcroft-Gault) 68.5 95.5 BUN/Creatinine Ratio 13 (6-20) Glucose Level 166 mg/dL (70-99) 95 mg/dL (70-99) Lactic Acid Level 3.9 mmol/L (0.4-2.0) 2.3 mmol/L (0.4-2.0) Calcium Level 8.6 mg/dL (8.5-10.1) 8.4 mg/dL (8.5-10.1) Magnesium Level 1.9 mg/dL (1.8-2.4) 2.3 mg/dL (1.8-2.4) Total Bilirubin 0.2 mg/dL (0.2-1.0) Aspartate Amino Transf (AST/SGOT) 21 U/L (15-37) Alanine Aminotransferase (ALT/SGPT) 12 U/L (14-59) Alkaline Phosphatase 70 U/L (46-116) Troponin I Quantitative < 0.017 ng/mL (0.000-0.055) DX-[id number]-Type Natriuretic Peptide 1795 pg/mL (0-449) Total Protein 7.7 g/dL (6.4-8.2) Albumin 2.3 g/dL (3.4-5.0) Albumin/Globulin Ratio 0.4 (1.0-1.7) O2 Saturation 98 % (92-99) Arterial Blood pH 7.47 (7.35-7.45) Arterial Blood pCO2 at Patient Temp 32 mmHg (35-46) Arterial Blood pO2 at Patient Temp 85 mmHg (65-108) Arterial Blood HCO3 23 mmol/L (21-28) Arterial Blood Base Excess -1 mmol/L (-3-3) FiO2 32 Phosphorus Level 3.1 mg/dL (2.6-4.7) Ferritin 16 ng/mL (8-252) Test 06/08/20 05:45 White Blood Count 5.3 x10^3/uL (4.0-11.0) Red Blood Count 3.32 x10^6/uL (3.50-5.40) Hemoglobin 8.3 g/dL (12.0-15.5) Hematocrit 25.4 % (36.0-47.0) Mean Corpuscular Volume 77 fL (79-100) Mean Corpuscular Hemoglobin 25 pg (25-35) Mean Corpuscular Hemoglobin Concent 33 g/dL (31-37) Red Cell Distribution Width 21.4 % (11.5-14.5) Platelet Count 286 x10^3/uL (140-400) Neutrophils (%) (Auto) 76 % (31-73) Lymphocytes (%) (Auto) 8 % (24-48) Monocytes (%) (Auto) 10 % (0-9) Eosinophils (%) (Auto) 5 % (0-3) Basophils (%) (Auto) 1 % (0-3) Neutrophils # (Auto) 4.0 x10^3/uL (1.8-7.7) Lymphocytes # (Auto) 0.4 x10^3/uL (1.0-4.8) Monocytes # (Auto) 0.5 x10^3/uL (0.0-1.1) Eosinophils # (Auto) 0.3 x10^3/uL (0.0-0.7) Basophils # (Auto) 0.0 x10^3/uL (0.0-0.2) Sodium Level 136 mmol/L (136-145) Potassium Level 4.2 mmol/L (3.5-5.1) Chloride Level 102 mmol/L (98-107) Carbon Dioxide Level 27 mmol/L (21-32) Anion Gap 7 (6-14) Blood Urea Nitrogen 9 mg/dL (7-20) Creatinine 0.6 mg/dL (0.6-1.0) Estimated GFR (Cockcroft-Gault) 95.5 BUN/Creatinine Ratio 15 (6-20) Glucose Level 94 mg/dL (70-99) Calcium Level 8.8 mg/dL (8.5-10.1) Total Bilirubin 0.3 mg/dL (0.2-1.0) Aspartate Amino Transf (AST/SGOT) 17 U/L (15-37) Alanine Aminotransferase (ALT/SGPT) 8 U/L (14-59) Alkaline Phosphatase 65 U/L (46-116) Total Protein 7.1 g/dL (6.4-8.2) Albumin 2.0 g/dL (3.4-5.0) Albumin/Globulin Ratio 0.4 (1.0-1.7) Laboratory Tests Test 06/08/20 05:45 White Blood Count 5.3 x10^3/uL (4.0-11.0) Red Blood Count 3.32 x10^6/uL (3.50-5.40) Hemoglobin 8.3 g/dL (12.0-15.5) Hematocrit 25.4 % (36.0-47.0) Mean Corpuscular Volume 77 fL (79-100) Mean Corpuscular Hemoglobin 25 pg (25-35) Mean Corpuscular Hemoglobin Concent 33 g/dL (31-37) Red Cell Distribution Width 21.4 % (11.5-14.5) Platelet Count 286 x10^3/uL (140-400) Neutrophils (%) (Auto) 76 % (31-73) Lymphocytes (%) (Auto) 8 % (24-48) Monocytes (%) (Auto) 10 % (0-9) Eosinophils (%) (Auto) 5 % (0-3) Basophils (%) (Auto) 1 % (0-3) Neutrophils # (Auto) 4.0 x10^3/uL (1.8-7.7) Lymphocytes # (Auto) 0.4 x10^3/uL (1.0-4.8) Monocytes # (Auto) 0.5 x10^3/uL (0.0-1.1) Eosinophils # (Auto) 0.3 x10^3/uL (0.0-0.7) Basophils # (Auto) 0.0 x10^3/uL (0.0-0.2) Sodium Level 136 mmol/L (136-145) Potassium Level 4.2 mmol/L (3.5-5.1) Chloride Level 102 mmol/L (98-107) Carbon Dioxide Level 27 mmol/L (21-32) Anion Gap 7 (6-14) Blood Urea Nitrogen 9 mg/dL (7-20) Creatinine 0.6 mg/dL (0.6-1.0) Estimated GFR (Cockcroft-Gault) 95.5 BUN/Creatinine Ratio 15 (6-20) Glucose Level 94 mg/dL (70-99) Calcium Level 8.8 mg/dL (8.5-10.1) Total Bilirubin 0.3 mg/dL (0.2-1.0) Aspartate Amino Transf (AST/SGOT) 17 U/L (15-37) Alanine Aminotransferase (ALT/SGPT) 8 U/L (14-59) Alkaline Phosphatase 65 U/L (46-116) Total Protein 7.1 g/dL (6.4-8.2) Albumin 2.0 g/dL (3.4-5.0) Albumin/Globulin Ratio 0.4 (1.0-1.7) Assessment/Plan Assessment/Plan Assessment: Squamous cell carcinoma of the right lung, [id number] CHF Pneumonia Hx of tobacco abuse Malnutrition Iron deficiency anemia Recommendations: -Continue with follow-up with Dr Valdes outpatient with repeat PT for response assessment -I discussed with the patient the options of systemic therapy for advanced NSCLC. SHe does not want to receive chemotherapy but is interested in non- chemotherapy options -Will arrange follow-up in my office to discuss systemic therapy after her repeat PET and appt with Dr Valdes -Recommend PO iron replacement -Continue management of pneumonia per Dr Blanco and Dr Clarke Please call [phone] with any questions CAREN DALEY MD Jun 08, 2020 13:28
[2020-06-08 15:05] VITALS: BP 139/56
--- NOTE | 2020-06-08 16:21 | PDOC ---
PULMONARY PROGRESS NOTES DATE: 06/08/20 TIME: 16:21 Vitals Vital Signs Date Time Temp Pulse Resp B/P (MAP) Pulse Ox O2 Delivery O2 Flow Rate FiO2 06/08/20 11:05 99.5 94 25 122/58 (79) 99 3.0 99.5 06/08/20 03:00 Nasal Cannula General: Alert, No acute distress Lungs: Clear Cardiovascular: S1 Abdomen: Soft Extremities: No Edema Labs Laboratory Tests Test 06/06/20 20:30 06/06/20 21:55 06/06/20 23:51 06/07/20 07:05 White Blood Count 6.8 x10^3/uL (4.0-11.0) 4.7 x10^3/uL (4.0-11.0) Red Blood Count 2.36 x10^6/uL (3.50-5.40) 3.14 x10^6/uL (3.50-5.40) Hemoglobin 5.2 g/dL (12.0-15.5) 7.9 g/dL (12.0-15.5) Hematocrit 16.8 % (36.0-47.0) 24.2 % (36.0-47.0) Mean Corpuscular Volume 71 fL (79-100) 77 fL (79-100) Mean Corpuscular Hemoglobin 22 pg (25-35) 25 pg (25-35) Mean Corpuscular Hemoglobin Concent 31 g/dL (31-37) 33 g/dL (31-37) Red Cell Distribution Width 19.3 % (11.5-14.5) 20.2 % (11.5-14.5) Platelet Count 376 x10^3/uL (140-400) 285 x10^3/uL (140-400) Neutrophils (%) (Auto) 88 % (31-73) 77 % (31-73) Lymphocytes (%) (Auto) 4 % (24-48) 10 % (24-48) Monocytes (%) (Auto) 7 % (0-9) 12 % (0-9) Eosinophils (%) (Auto) 0 % (0-3) 1 % (0-3) Basophils (%) (Auto) 1 % (0-3) 0 % (0-3) Neutrophils # (Auto) 6.0 x10^3/uL (1.8-7.7) 3.7 x10^3/uL (1.8-7.7) Lymphocytes # (Auto) 0.3 x10^3/uL (1.0-4.8) 0.5 x10^3/uL (1.0-4.8) Monocytes # (Auto) 0.4 x10^3/uL (0.0-1.1) 0.6 x10^3/uL (0.0-1.1) Eosinophils # (Auto) 0.0 x10^3/uL (0.0-0.7) 0.1 x10^3/uL (0.0-0.7) Basophils # (Auto) 0.0 x10^3/uL (0.0-0.2) 0.0 x10^3/uL (0.0-0.2) Segmented Neutrophils % 86 % (35-66) Band Neutrophils % 3 % (0-9) Lymphocytes % 2 % (24-48) Monocytes % 8 % (0-10) Basophils % 1 % (0-3) Platelet Estimate Adequate (ADEQUATE) Hypochromasia Mod Poikilocytosis Slight Anisocytosis Slight Microcytosis Mod Ovalocytes Few Sodium Level 131 mmol/L (136-145) 138 mmol/L (136-145) Potassium Level 4.2 mmol/L (3.5-5.1) 4.0 mmol/L (3.5-5.1) Chloride Level 96 mmol/L (98-107) 103 mmol/L (98-107) Carbon Dioxide Level 25 mmol/L (21-32) 29 mmol/L (21-32) Anion Gap 10 (6-14) 6 (6-14) Blood Urea Nitrogen 10 mg/dL (7-20) 9 mg/dL (7-20) Creatinine 0.8 mg/dL (0.6-1.0) 0.6 mg/dL (0.6-1.0) Estimated GFR (Cockcroft-Gault) 68.5 95.5 BUN/Creatinine Ratio 13 (6-20) Glucose Level 166 mg/dL (70-99) 95 mg/dL (70-99) Lactic Acid Level 3.9 mmol/L (0.4-2.0) 2.3 mmol/L (0.4-2.0) Calcium Level 8.6 mg/dL (8.5-10.1) 8.4 mg/dL (8.5-10.1) Magnesium Level 1.9 mg/dL (1.8-2.4) 2.3 mg/dL (1.8-2.4) Total Bilirubin 0.2 mg/dL (0.2-1.0) Aspartate Amino Transf (AST/SGOT) 21 U/L (15-37) Alanine Aminotransferase (ALT/SGPT) 12 U/L (14-59) Alkaline Phosphatase 70 U/L (46-116) Troponin I Quantitative < 0.017 ng/mL (0.000-0.055) FW-Sus-I-Type Natriuretic Peptide 1795 pg/mL (0-449) Total Protein 7.7 g/dL (6.4-8.2) Albumin 2.3 g/dL (3.4-5.0) Albumin/Globulin Ratio 0.4 (1.0-1.7) O2 Saturation 98 % (92-99) Arterial Blood pH 7.47 (7.35-7.45) Arterial Blood pCO2 at Patient Temp 32 mmHg (35-46) Arterial Blood pO2 at Patient Temp 85 mmHg (65-108) Arterial Blood HCO3 23 mmol/L (21-28) Arterial Blood Base Excess -1 mmol/L (-3-3) FiO2 32 Phosphorus Level 3.1 mg/dL (2.6-4.7) Ferritin 16 ng/mL (8-252) Test 06/08/20 05:45 White Blood Count 5.3 x10^3/uL (4.0-11.0) Red Blood Count 3.32 x10^6/uL (3.50-5.40) Hemoglobin 8.3 g/dL (12.0-15.5) Hematocrit 25.4 % (36.0-47.0) Mean Corpuscular Volume 77 fL (79-100) Mean Corpuscular Hemoglobin 25 pg (25-35) Mean Corpuscular Hemoglobin Concent 33 g/dL (31-37) Red Cell Distribution Width 21.4 % (11.5-14.5) Platelet Count 286 x10^3/uL (140-400) Neutrophils (%) (Auto) 76 % (31-73) Lymphocytes (%) (Auto) 8 % (24-48) Monocytes (%) (Auto) 10 % (0-9) Eosinophils (%) (Auto) 5 % (0-3) Basophils (%) (Auto) 1 % (0-3) Neutrophils # (Auto) 4.0 x10^3/uL (1.8-7.7) Lymphocytes # (Auto) 0.4 x10^3/uL (1.0-4.8) Monocytes # (Auto) 0.5 x10^3/uL (0.0-1.1) Eosinophils # (Auto) 0.3 x10^3/uL (0.0-0.7) Basophils # (Auto) 0.0 x10^3/uL (0.0-0.2) Sodium Level 136 mmol/L (136-145) Potassium Level 4.2 mmol/L (3.5-5.1) Chloride Level 102 mmol/L (98-107) Carbon Dioxide Level 27 mmol/L (21-32) Anion Gap 7 (6-14) Blood Urea Nitrogen 9 mg/dL (7-20) Creatinine 0.6 mg/dL (0.6-1.0) Estimated GFR (Cockcroft-Gault) 95.5 BUN/Creatinine Ratio 15 (6-20) Glucose Level 94 mg/dL (70-99) Calcium Level 8.8 mg/dL (8.5-10.1) Total Bilirubin 0.3 mg/dL (0.2-1.0) Aspartate Amino Transf (AST/SGOT) 17 U/L (15-37) Alanine Aminotransferase (ALT/SGPT) 8 U/L (14-59) Alkaline Phosphatase 65 U/L (46-116) Total Protein 7.1 g/dL (6.4-8.2) Albumin 2.0 g/dL (3.4-5.0) Albumin/Globulin Ratio 0.4 (1.0-1.7) Laboratory Tests Test 06/08/20 05:45 White Blood Count 5.3 x10^3/uL (4.0-11.0) Red Blood Count 3.32 x10^6/uL (3.50-5.40) Hemoglobin 8.3 g/dL (12.0-15.5) Hematocrit 25.4 % (36.0-47.0) Mean Corpuscular Volume 77 fL (79-100) Mean Corpuscular Hemoglobin 25 pg (25-35) Mean Corpuscular Hemoglobin Concent 33 g/dL (31-37) Red Cell Distribution Width 21.4 % (11.5-14.5) Platelet Count 286 x10^3/uL (140-400) Neutrophils (%) (Auto) 76 % (31-73) Lymphocytes (%) (Auto) 8 % (24-48) Monocytes (%) (Auto) 10 % (0-9) Eosinophils (%) (Auto) 5 % (0-3) Basophils (%) (Auto) 1 % (0-3) Neutrophils # (Auto) 4.0 x10^3/uL (1.8-7.7) Lymphocytes # (Auto) 0.4 x10^3/uL (1.0-4.8) Monocytes # (Auto) 0.5 x10^3/uL (0.0-1.1) Eosinophils # (Auto) 0.3 x10^3/uL (0.0-0.7) Basophils # (Auto) 0.0 x10^3/uL (0.0-0.2) Sodium Level 136 mmol/L (136-145) Potassium Level 4.2 mmol/L (3.5-5.1) Chloride Level 102 mmol/L (98-107) Carbon Dioxide Level 27 mmol/L (21-32) Anion Gap 7 (6-14) Blood Urea Nitrogen 9 mg/dL (7-20) Creatinine 0.6 mg/dL (0.6-1.0) Estimated GFR (Cockcroft-Gault) 95.5 BUN/Creatinine Ratio 15 (6-20) Glucose Level 94 mg/dL (70-99) Calcium Level 8.8 mg/dL (8.5-10.1) Total Bilirubin 0.3 mg/dL (0.2-1.0) Aspartate Amino Transf (AST/SGOT) 17 U/L (15-37) Alanine Aminotransferase (ALT/SGPT) 8 U/L (14-59) Alkaline Phosphatase 65 U/L (46-116) Total Protein 7.1 g/dL (6.4-8.2) Albumin 2.0 g/dL (3.4-5.0) Albumin/Globulin Ratio 0.4 (1.0-1.7) Medications Active Scripts Medications Dose Route/Sig Max Daily Dose Days Date Category Meclizine Hcl 25 Mg Tablet 25 Mg PO PRN PRN 05/04/20 Reported Citalopram Hbr (Citalopram Hydrobromide) 40 Mg Tablet 40 Mg PO DAILY 05/04/20 Reported Folic Acid 0.8 Mg Capsule 0.4 Mg PO DAILY 11/20/19 Reported Dok (Docusate Sodium) 100 Mg Capsule 100 Mg PO DAILY 11/20/19 Reported Coq-10 (Ubidecarenone) 100 Mg Capsule 100 Mg PO DAILY 11/20/19 Reported Calcium 1,000 + D3 Caplet (Calcium Carbonate/Vitamin D3) 1 Each Tablet 1 Tab PO DAILY 30 11/20/19 Reported Atorvastatin Calcium 40 Mg Tablet 1 Tab PO DAILY 11/20/19 Reported Aspirin 81 Mg Tab.chew 1 Tab PO DAILY 11/20/19 Reported Eliquis (Apixaban) 5 Mg Tablet 5 Mg PO BID 11/20/19 Reported Alendronate Sodium 70 Mg Tablet 1 Tab PO WEEKLY 11/20/19 Reported Ventolin Hfa Inhaler (Albuterol Sulfate) 18 Gm Hfa.aer.ad 2 Puff INH PRN Q4-6HRS PRN 11/20/19 Reported Vitamin B-12 (Cyanocobalamin (Vitamin B-12)) 500 Mcg Tablet 1 Tab PO DAILY 30 11/20/19 Reported B Complex (Vitamin B Complex) 1 Each Tablet 1 Tab PO DAILY 30 11/20/19 Reported Vesicare (Solifenacin Succinate) 10 Mg Tablet 1 Tab PO DAILY 30 11/20/19 Reported Polyethylene Glycol 3350 2,500 Gm Powder 17 Gm PO DAILY 11/20/19 Reported Pantoprazole Sodium (Pantoprazole Sodium) 40 Mg Tablet.dr 40 Mg PO DAILYAC 11/20/19 Reported Multi Vitamin Daily (Multivitamin) 1 Each Tablet 1 Tab PO DAILY 30 11/20/19 Reported Metoprolol Tartrate 25 Mg Tablet 1 Tab PO BID 11/20/19 Reported Hydralazine Hcl 10 Mg Tablet 2 Tab PO TID 11/20/19 Reported Furosemide 20 Mg Tablet 1 Tab PO DAILY 11/20/19 Reported Fish Oil 1,000 Mg Softgel (Na[place]-3 Fatty Acids/Fish Oil) 1 Each Capsule 1 Cap PO DAILY 30 11/20/19 Reported Ferrous Sulfate 325 Mg Tablet 1 Tab PO DAILY 11/20/19 Reported Impression . Full consult dictated Respiratory failure multifactorial we will treat for pneumonia repeat chest x- ray monitor hemoglobin MAYURI WILSON MD Jun 08, 2020 16:21
--- NOTE | 2020-06-08 17:18 | CONS ---
DATE OF CONSULTATION: 06/08/2020 ATTENDING PHYSICIAN: Dr. Umanzor. REASON FOR CONSULTATION: The patient is seen in pulmonary consultation at the request of Dr. Umanzor for increasing shortness of breath. HISTORY OF PRESENT ILLNESS: The patient is an 85-year-old that seen in pulmonary consultation for increasing shortness of breath. She was more short of breath over the last 2-3 days. She has a productive cough. She also heard herself crackling in her chest. She has a history of a lung mass, which was diagnosed back in November. She is status post treatment. She had a previous biopsy positive for squamous cell carcinoma. The patient denies hemoptysis. She presented with the above complaints. She was also found to be severely anemic at 5.2. She was given some blood. She is now at 8.3. Arterial blood gas revealed a pH of 7.47, PaCO2 of 32. Electrolytes were noted. Chest x-ray was reviewed. There is evidence of increased vascular congestion compatible with CHF. Her white count was normal. Electrolytes were noted. So far, blood cultures are negative. She denies fever, chills, nausea, vomiting, diarrhea. No recent exposures to anyone with COVID-19. PAST MEDICAL HISTORY: History of squamous cell carcinoma, status post biopsy back in 11/2019. She has a history of tobacco use, quit in November. There is prior history of COPD, dyslipidemia, hypertension and coronary artery disease. PAST SURGICAL HISTORY: Status post coronary artery bypass grafting, hysterectomy. MEDICATIONS: List was reviewed. REVIEW OF SYSTEMS: As indicated above, otherwise, a 10-point system was reviewed and negative. ALLERGIES: No known drug allergies. SOCIAL HISTORY: She has a [id number] history of smoking, quit back in November. FAMILY HISTORY: Three brothers, all had lung cancer. CURRENT MEDICATION: List was reviewed. PHYSICAL EXAMINATION: VITAL SIGNS: Since admission, she had a T-max of 100.3. HEENT: Eyes, the sclerae were nonicteric. NECK: Jugular venous distention was not elevated. No lymphadenopathy. CHEST: Full expansion. LUNGS: Bilateral wheezes, crackles. CARDIOVASCULAR: Regular rate and rhythm with S1, S2, no S3. ABDOMEN: Soft, nontender, nondistended. EXTREMITIES: No clubbing, cyanosis or edema. LABORATORY DATA: As indicated above. Chest x-ray as indicated above. IMPRESSION: 1. Acute on chronic hypoxemic respiratory failure. 2. Bilateral pulmonary infiltrates compatible with pulmonary edema, possibly atypical pneumonia. 3. Fever. 4. Acute blood loss anemia, status post transfusion. 5. Gastroesophageal reflux. 6. Coronary artery disease with chronic atrial fibrillation, on Eliquis and aspirin. 7. 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 PLAN: 1. The patient has been transfused. She feels less short of breath. I am sure that the hemoglobin being at 5.2 contributed to her dyspnea. 2. Chest x-ray appears to be abnormal. We will empirically treat for pneumonia. 3. Rule out SARS-CoV-2. 4. Follow GI recommendation. 5. The patient currently on Lovenox. We will monitor for further gastrointestinal bleeding. 6. Hematology has been consulted. I do appreciate the privilege in sharing in the patient's care. MAYURI WILSON MD DR: YOAV/titi JOB#: [id number] / [id number]
--- NOTE | 2020-06-08 17:20 | NUR ---
SW following. Spoke with RN and reviewed chart. Pt from home. Discharge plan remains home with Tay MULLIGAN when stable. SW following.
[2020-06-08 19:00] VITALS: BP 164/71
[2020-06-08] MEDS: AZITHROMYCIN 500 MG in IV NORMAL SALINE 250ML 250 ML IV SCH (20:54)
[2020-06-08] MEDS: cefTRIAXone IV Push 1 GM VIAL. IVP SCH (20:54)
[2020-06-08] MEDS: MAGNESIUM SULFATE 2GM 50 ML IV SCH (20:55)
[2020-06-08 23:00] VITALS: BP 160/73
[2020-06-09 03:00] VITALS: BP 150/65
[2020-06-09 07:15] VITALS: BP 145/59
[2020-06-09] MEDS ORDERED: PANTOPRAZOLE 40 MG TABLET.DR. PO SCH (07:30)
--- NOTE | 2020-06-09 08:33 | PDOC ---
PULMONARY PROGRESS NOTES DATE: 06/09/20 TIME: 08:33 Subjective Patient not more short of air she informed me that she was discharging home Vitals Vital Signs Date Time Temp Pulse Resp B/P (MAP) Pulse Ox O2 Delivery O2 Flow Rate FiO2 06/09/20 03:00 98.3 100 19 150/65 (93) 94 Nasal Cannula 3.0 98.3 ROS: No Nausea, No Chest Pain, No Abdominal Pain, No Increase Cough General: Alert, No acute distress Lungs: Clear Cardiovascular: S1 Abdomen: Soft Extremities: No Edema Labs Laboratory Tests Test 06/08/20 05:45 06/09/20 03:30 White Blood Count 5.3 x10^3/uL (4.0-11.0) Red Blood Count 3.32 x10^6/uL (3.50-5.40) Hemoglobin 8.3 g/dL (12.0-15.5) Hematocrit 25.4 % (36.0-47.0) Mean Corpuscular Volume 77 fL (79-100) Mean Corpuscular Hemoglobin 25 pg (25-35) Mean Corpuscular Hemoglobin Concent 33 g/dL (31-37) Red Cell Distribution Width 21.4 % (11.5-14.5) Platelet Count 286 x10^3/uL (140-400) Neutrophils (%) (Auto) 76 % (31-73) Lymphocytes (%) (Auto) 8 % (24-48) Monocytes (%) (Auto) 10 % (0-9) Eosinophils (%) (Auto) 5 % (0-3) Basophils (%) (Auto) 1 % (0-3) Neutrophils # (Auto) 4.0 x10^3/uL (1.8-7.7) Lymphocytes # (Auto) 0.4 x10^3/uL (1.0-4.8) Monocytes # (Auto) 0.5 x10^3/uL (0.0-1.1) Eosinophils # (Auto) 0.3 x10^3/uL (0.0-0.7) Basophils # (Auto) 0.0 x10^3/uL (0.0-0.2) Sodium Level 136 mmol/L (136-145) Potassium Level 4.2 mmol/L (3.5-5.1) Chloride Level 102 mmol/L (98-107) Carbon Dioxide Level 27 mmol/L (21-32) Anion Gap 7 (6-14) Blood Urea Nitrogen 9 mg/dL (7-20) Creatinine 0.6 mg/dL (0.6-1.0) Estimated GFR (Cockcroft-Gault) 95.5 BUN/Creatinine Ratio 15 (6-20) Glucose Level 94 mg/dL (70-99) Calcium Level 8.8 mg/dL (8.5-10.1) Total Bilirubin 0.3 mg/dL (0.2-1.0) Aspartate Amino Transf (AST/SGOT) 17 U/L (15-37) Alanine Aminotransferase (ALT/SGPT) 8 U/L (14-59) Alkaline Phosphatase 65 U/L (46-116) Total Protein 7.1 g/dL (6.4-8.2) Albumin 2.0 g/dL (3.4-5.0) Albumin/Globulin Ratio 0.4 (1.0-1.7) Iron Level 19 ug/dL (50-170) Total Iron Binding Capacity 284 ug/dL (250-450) Iron Saturation 7 % (15-34) Laboratory Tests Test 06/09/20 03:30 Iron Level 19 ug/dL (50-170) Total Iron Binding Capacity 284 ug/dL (250-450) Iron Saturation 7 % (15-34) Medications Active Scripts Medications Dose Route/Sig Max Daily Dose Days Date Category Meclizine Hcl 25 Mg Tablet 25 Mg PO PRN PRN 05/04/20 Reported Citalopram Hbr (Citalopram Hydrobromide) 40 Mg Tablet 40 Mg PO DAILY 05/04/20 Reported Folic Acid 0.8 Mg Capsule 0.4 Mg PO DAILY 11/20/19 Reported Dok (Docusate Sodium) 100 Mg Capsule 100 Mg PO DAILY 11/20/19 Reported Coq-10 (Ubidecarenone) 100 Mg Capsule 100 Mg PO DAILY 11/20/19 Reported Calcium 1,000 + D3 Caplet (Calcium Carbonate/Vitamin D3) 1 Each Tablet 1 Tab PO DAILY 30 11/20/19 Reported Atorvastatin Calcium 40 Mg Tablet 1 Tab PO DAILY 11/20/19 Reported Aspirin 81 Mg Tab.chew 1 Tab PO DAILY 11/20/19 Reported Eliquis (Apixaban) 5 Mg Tablet 5 Mg PO BID 11/20/19 Reported Alendronate Sodium 70 Mg Tablet 1 Tab PO WEEKLY 11/20/19 Reported Ventolin Hfa Inhaler (Albuterol Sulfate) 18 Gm Hfa.aer.ad 2 Puff INH PRN Q4-6HRS PRN 11/20/19 Reported Vitamin B-12 (Cyanocobalamin (Vitamin B-12)) 500 Mcg Tablet 1 Tab PO DAILY 30 11/20/19 Reported B Complex (Vitamin B Complex) 1 Each Tablet 1 Tab PO DAILY 30 11/20/19 Reported Vesicare (Solifenacin Succinate) 10 Mg Tablet 1 Tab PO DAILY 30 11/20/19 Reported Polyethylene Glycol 3350 2,500 Gm Powder 17 Gm PO DAILY 11/20/19 Reported Pantoprazole Sodium (Pantoprazole Sodium) 40 Mg Tablet.dr 40 Mg PO DAILYAC 11/20/19 Reported Multi Vitamin Daily (Multivitamin) 1 Each Tablet 1 Tab PO DAILY 30 11/20/19 Reported Metoprolol Tartrate 25 Mg Tablet 1 Tab PO BID 11/20/19 Reported Hydralazine Hcl 10 Mg Tablet 2 Tab PO TID 11/20/19 Reported Furosemide 20 Mg Tablet 1 Tab PO DAILY 11/20/19 Reported Fish Oil 1,000 Mg Softgel ([place]-3 Fatty Acids/Fish Oil) 1 Each Capsule 1 Cap PO DAILY 30 11/20/19 Reported Ferrous Sulfate 325 Mg Tablet 1 Tab PO DAILY 11/20/19 Reported Impression . IMPRESSION: 1. Acute on chronic hypoxemic respiratory failure. 2. Bilateral pulmonary infiltrates compatible with pulmonary edema, possibly atypical pneumonia. 3. Fever. 4. Acute blood loss anemia, status post transfusion. 5. Gastroesophageal reflux. 6. Coronary artery disease with chronic atrial fibrillation, on Eliquis and aspirin. 7. 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 Plan . Respiratory status is compensated patient okay to discharge MAYURI WILSON MD Jun 09, 2020 08:33
--- NOTE | 2020-06-09 08:44 | PDOC ---
PROGRESS NOTES Date of Service: DATE: 06/09/20 TIME: 08:44 Chief Complaint Chief Complaint VTE Prophylaxis Ordered VTE Prophylaxis Devices: Yes VTE Pharmacological Prophylaxi: Contraindicated DISCHARGE DX Assessment/Plan IMPRESSION: ACUTE Congestive heart failure with cardiomegaly and pulmonary edema. 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 Involvement of the adjacent posterolateral right rib appears be present with associated destructive findings. pet SCAN 12/02 associated 6th rib fracture. cachexia sepsis PLAN emperic iv rocephin, zithromax consult PULM COVID 19 NEG consult oncology CONSULT GI [facility] ADMIT 34 min pt exam, chart review, D/C PLANNING > 50% of time spent with exam, chart review, pt care coordination Justifications for Admission Justifications for Admission General Conditions Elevated Lactate?: Yes Justification for admission: Patient has tachycardia (> 100 beats per minute) or hypotension (SBP < 90 mm Hg) leading to inadequate systemic perfusion as indicated by lactate of greater or equal to 2.5 mmol/L. Other Justification History of Present Illness History of Present Illness Identification/Chief Complaint Chief Complaint SEEN IN ER WITH COUGH , 85-year-old female past medical history significant for stage 4 lung cancer, COPD with tobacco dependence, CAD, atrial fibrillation on eliquis and hypertension, presents the ED with complaints of shortness of breath for the past few days with anorexia, sore throat and productive cough. Patient states she had a stress test and lower extremity duplex ultrasound by primary care physician. EMR was reviewed lower extremity duplex showed no evidence of DVT. Stress test showed no active ischemia, with atrial fibrillation. 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 FHX COPD Cardiovascular: Hyperlipidemia Pulmonary: Bronchitis, COPD Psych: No pertinent hx Musculoskeletal: Osteoarthritis Endocrine: No pertinent hx Family History Family History: Chronic Bronchitis, Hypertension Social History Smoke: Quit ALCOHOL: none Drugs: None Current Problem List Problem List Problems Medical Problems: (1) CAP (community acquired pneumonia) Status: Acute (2) CHF (congestive heart failure) Status: Acute Vitals Vitals Vital Signs Date Time Temp Pulse Resp B/P (MAP) Pulse Ox O2 Delivery O2 Flow Rate FiO2 06/09/20 03:00 98.3 100 19 150/65 (93) 94 Nasal Cannula 3.0 98.3 Physical Exam Physical Exam Constitutional: thin/frail, no acute distress, HENT: Normocephalic, atraumatic, bilateral external ears normal, oropharynx moist, no oral exudates or erythema, nose normal. [] Eyes: EOMI, conjunctiva normal, no discharge. [] Neck: Normal range of motion, supple, no stridor. [] Cardiovascular:Heart rate regular rhythm, no murmur [] Lungs & Thorax: Bilateral rhonchi Abdomen: Bowel sounds normal, soft, no tenderness, no masses, no pulsatile ma sses. [] Skin: Warm, dry, pale appearing Back: No tenderness, no CVA tenderness. [] Extremities: No tenderness, no cyanosis, no clubbing, ROM intact, no edema. [] Neurologic: Alert and oriented X 3, normal motor function, normal sensory function, no focal deficits noted. [] Psychologic: Affect normal, judgment normal, mood normal. [] Heart: RRR Breasts: Not examined Abdomen: Soft Rectal Exam: not examined PELVIC: Examination not indicated Extremities: No cyanosis Neuro: Normal speech, Cranial nerves 3-12 NL Psych/Mental Status: Mental status NL, Mood NL General: Alert, Oriented X3, Cooperative, No acute distress Lungs: Clear Abdomen: Normal bowel sounds, Soft, No tenderness Extremities: No cyanosis Labs LABS Laboratory Tests Test 06/09/20 03:30 Iron Level 19 ug/dL (50-170) Total Iron Binding Capacity 284 ug/dL (250-450) Iron Saturation 7 % (15-34) Assessment and Plan Assessmemt and Plan Problems Medical Problems: (1) CAP (community acquired pneumonia) Status: Acute (2) CHF (congestive heart failure) Status: Acute (3) Sepsis Status: Acute (4) Symptomatic anemia Status: Acute Comment Review of Relevant I have reviewed the following items nik (where applicable) has been applied. Labs Laboratory Tests Test 06/08/20 05:45 06/09/20 03:30 White Blood Count 5.3 x10^3/uL (4.0-11.0) Red Blood Count 3.32 x10^6/uL (3.50-5.40) Hemoglobin 8.3 g/dL (12.0-15.5) Hematocrit 25.4 % (36.0-47.0) Mean Corpuscular Volume 77 fL (79-100) Mean Corpuscular Hemoglobin 25 pg (25-35) Mean Corpuscular Hemoglobin Concent 33 g/dL (31-37) Red Cell Distribution Width 21.4 % (11.5-14.5) Platelet Count 286 x10^3/uL (140-400) Neutrophils (%) (Auto) 76 % (31-73) Lymphocytes (%) (Auto) 8 % (24-48) Monocytes (%) (Auto) 10 % (0-9) Eosinophils (%) (Auto) 5 % (0-3) Basophils (%) (Auto) 1 % (0-3) Neutrophils # (Auto) 4.0 x10^3/uL (1.8-7.7) Lymphocytes # (Auto) 0.4 x10^3/uL (1.0-4.8) Monocytes # (Auto) 0.5 x10^3/uL (0.0-1.1) Eosinophils # (Auto) 0.3 x10^3/uL (0.0-0.7) Basophils # (Auto) 0.0 x10^3/uL (0.0-0.2) Sodium Level 136 mmol/L (136-145) Potassium Level 4.2 mmol/L (3.5-5.1) Chloride Level 102 mmol/L (98-107) Carbon Dioxide Level 27 mmol/L (21-32) Anion Gap 7 (6-14) Blood Urea Nitrogen 9 mg/dL (7-20) Creatinine 0.6 mg/dL (0.6-1.0) Estimated GFR (Cockcroft-Gault) 95.5 BUN/Creatinine Ratio 15 (6-20) Glucose Level 94 mg/dL (70-99) Calcium Level 8.8 mg/dL (8.5-10.1) Total Bilirubin 0.3 mg/dL (0.2-1.0) Aspartate Amino Transf (AST/SGOT) 17 U/L (15-37) Alanine Aminotransferase (ALT/SGPT) 8 U/L (14-59) Alkaline Phosphatase 65 U/L (46-116) Total Protein 7.1 g/dL (6.4-8.2) Albumin 2.0 g/dL (3.4-5.0) Albumin/Globulin Ratio 0.4 (1.0-1.7) Iron Level 19 ug/dL (50-170) Total Iron Binding Capacity 284 ug/dL (250-450) Iron Saturation 7 % (15-34) Laboratory Tests Test 06/09/20 03:30 Iron Level 19 ug/dL (50-170) Total Iron Binding Capacity 284 ug/dL (250-450) Iron Saturation 7 % (15-34) Microbiology 06/06/20 Blood Culture - Preliminary, Resulted NO GROWTH AFTER 2 DAYS Medications Current Medications Ceftriaxone Sodium (Rocephin) 1 gm 1X ONCE IVP Last administered on 06/06/20at 21:00; Start 06/06/20 at 20:45; Stop 06/06/20 at 20:46; Status DC Azithromycin 250 ml @ 250 mls/hr 1X ONCE IV Last administered on 06/06/20at 21:00; Start 06/06/20 at 20:45; Stop 06/06/20 at 21:44; Status DC Sodium Chloride 250 ml @ 250 mls/hr 1X ONCE IV Last administered on 06/06/20at 21:00; Start 06/06/20 at 20:45; Stop 06/06/20 at 21:44; Status DC Nitroglycerin (Nitrostat) 0.4 mg PRN Q5MIN PRN SL CHEST PAIN; Start 06/06/20 at 21:45 Sennosides (Senna) 17.2 mg PRN BID PRN PO CONSTIPATION; Start 06/06/20 at 22:30; Stop 06/08/20 at 11:08; Status DC Docusate Sodium (Colace) 100 mg PRN DAILY PRN PO HARD STOOLS; Start 06/06/20 at 22:30 Ondansetron HCl (Zofran) 4 mg PRN Q6HRS PRN IVP NAUSEA/VOMITING; Start 06/06/20 at 22:30 Potassium Chloride (Klor-Con) 40 meq 1X PRN PRN PO PER PROTOCOL; Start 06/06/20 at 22:30 Magnesium Oxide (Magnesium Oxide) 400 mg BID PO Last administered on 06/08/20at 20:55; Start 06/07/20 at 09:00; Stop 06/08/20 at 21:01; Status DC Potassium Chloride/Water 100 ml @ 100 mls/hr Q1H IV ; Start 06/06/20 at 23:00; Stop 06/07/20 at 02:59; Status DC Magnesium Sulfate 50 ml @ 25 mls/hr Q24H IV ; Start 06/06/20 at 23:00; Stop 06/09/20 at 00:59; Status DC Potassium Chloride/Water 100 ml @ 100 mls/hr PRN Q1HR PRN IV low k; Start 06/06/20 at 22:30 Dextrose (Dextrose 50%-Water Syringe) 12.5 gm PRN Q15MIN PRN IV SEE COMMENTS; Start 06/06/20 at 22:30 Acetaminophen (Tylenol) 650 mg PRN Q4HRS PRN PO TEMP OVER 100.4F OR MILD PAIN Last administered on 06/08/20at 12:06; Start 06/06/20 at 22:30 Enoxaparin Sodium (Lovenox 30mg Syringe) 30 mg Q24H SQ Last administered on 06/08/20at 20:55; Start 06/06/20 at 22:30 Azithromycin 500 mg/Sodium Chloride 250 ml @ 250 mls/hr Q24H IV Last administered on 06/08/20at 20:54; Start 06/07/20 at 21:00 Ceftriaxone Sodium (Rocephin) 1 gm Q24H IVP Last administered on 06/08/20at 20:54; Start 06/07/20 at 20:00 Influenza Virus Vaccine Quadrival (Fluzone Quad Syringe) 0.5 ml ONCE ONCE VAX IM Last administered on 06/07/20at 09:46; Start 06/07/20 at 09:00; Stop 06/07/20 at 09:01; Status DC Lactobacillus Rhamnosus (Culturelle) 1 cap BID PO Last administered on 06/08/20at 20:54; Start 06/07/20 at 21:00 Pantoprazole Sodium (PROTONIX VIAL for IV PUSH) 40 mg DAILYAC IVP Last administered on 06/08/20at 08:58; Start 06/07/20 at 17:00; Stop 06/08/20 at 11:08; Status DC Polyethylene Glycol (miraLAX PACKET) 17 gm DAILY PO Last administered on 06/08/20at 12:06; Start 06/08/20 at 12:00 Polyethylene Glycol (miraLAX PACKET) 17 gm PRN DAILY PRN PO CONSTIPATION; Start 06/08/20 at 11:15 Pantoprazole Sodium (Protonix) 40 mg DAILYAC PO ; Start 06/09/20 at 07:30 Ferrous Sulfate (Feosol) 325 mg BID PO Last administered on 06/08/20at 20:55; Start 06/08/20 at 12:00 Active Scripts Active Reported Meclizine Hcl 25 Mg Tablet 25 Mg PO PRN PRN Citalopram Hbr (Citalopram Hydrobromide) 40 Mg Tablet 40 Mg PO DAILY Folic Acid 0.8 Mg Capsule 0.4 Mg PO DAILY Dok (Docusate Sodium) 100 Mg Capsule 100 Mg PO DAILY Coq-10 (Ubidecarenone) 100 Mg Capsule 100 Mg PO DAILY Calcium 1,000 + D3 Caplet (Calcium Carbonate/Vitamin D3) 1 Each Tablet 1 Tab PO DAILY 30 Days Atorvastatin Calcium 40 Mg Tablet 1 Tab PO DAILY Aspirin 81 Mg Tab.chew 1 Tab PO DAILY Eliquis (Apixaban) 5 Mg Tablet 5 Mg PO BID Alendronate Sodium 70 Mg Tablet 1 Tab PO WEEKLY Ventolin Hfa Inhaler (Albuterol Sulfate) 18 Gm Hfa.aer.ad 2 Puff INH PRN Q4-6HRS PRN Vitamin B-12 (Cyanocobalamin (Vitamin B-12)) 500 Mcg Tablet 1 Tab PO DAILY 30 Days B Complex (Vitamin B Complex) 1 Each Tablet 1 Tab PO DAILY 30 Days Vesicare (Solifenacin Succinate) 10 Mg Tablet 1 Tab PO DAILY 30 Days Polyethylene Glycol 3350 2,500 Gm Powder 17 Gm PO DAILY Pantoprazole Sodium (Pantoprazole Sodium) 40 Mg Tablet.dr 40 Mg PO DAILYAC Multi Vitamin Daily (Multivitamin) 1 Each Tablet 1 Tab PO DAILY 30 Days Metoprolol Tartrate 25 Mg Tablet 1 Tab PO BID Hydralazine Hcl 10 Mg Tablet 2 Tab PO TID Furosemide 20 Mg Tablet 1 Tab PO DAILY Fish Oil 1,000 Mg Softgel ([place]-3 Fatty Acids/Fish Oil) 1 Each Capsule 1 Cap PO DAILY 30 Days Ferrous Sulfate 325 Mg Tablet 1 Tab PO DAILY Vitals/I & O Vital Sign - Last 24 Hours 06/08/20 06/08/20 06/08/20 06/08/20 11:05 15:05 19:00 20:00 Temp 99.5 98.6 98.6 99.5 98.6 98.6 Pulse 94 92 100 Resp 18 B/P (MAP) 122/58 (79) 139/56 (83) 164/71 (102) Pulse Ox 99 97 100 O2 Delivery Nasal Cannula Nasal Cannula O2 Flow Rate 3.0 3.0 3.0 3.0 06/08/20 06/09/20 23:00 03:00 Temp 98.9 98.3 98.9 98.3 Pulse 95 100 Resp 19 B/P (MAP) 160/73 (102) 150/65 (93) Pulse Ox 95 94 O2 Delivery Nasal Cannula Nasal Cannula O2 Flow Rate 3.0 3.0 Intake and Output 06/08/20 06/08/20 06/09/20 15:00 23:00 07:00 Intake Total 250 ml Output Total 300 ml Balance -50 ml Nutrition Consultation Dietary Evaluation: Recommendations by RD: Dietary education by RD, Increase Calorie Intake, Protein supplementation Comments: sendiing ensure enlive tid for optimum nutrition Expected Outcomes/Goals: to meet >75% est nutr needs Malnutrition Findings: Body Fat Depletion (Non Severe: Mild Depletion Weight Status: Overweight Justicifation of Admission Dx: Justifications for Admission: Justification of Admission Dx: Yes IAN CHAPMAN MD Jun 09, 2020 08:44
[2020-06-09] MEDS: POLYETHYLENE GLYCOL 3350 17 GM PACKET. PO SCH (08:49)
[2020-06-09] MEDS: ACETAMINOPHEN 325 MG TABLET. PO PRN (08:50)
[2020-06-09] MEDS: FERROUS SULFATE 325 MG TABLET. PO SCH (08:50)
[2020-06-09] MEDS: LACTOBACILLUS RHAMNOSUS GG 1 CAPSULE. PO SCH (08:50)
--- NOTE | 2020-06-09 09:44 | RAD ---
PORTABLE CHEST 1V 06/09/2020 5:00 AM INDICATION: Respiratory failure COMPARISON: 06/06/2020 TECHNIQUE: Portable frontal view of the chest is provided. FINDINGS: The cardiomediastinal silhouette is similar in appearance. Median sternotomy changes are present. Right upper lobe and perihilar interstitial airspace disease suggestive of pulmonary infiltrates. No significant pleural effusions, pulmonary vascular congestion or pneumothorax. Acute reduction internal fixation of a left clavicular fracture is noted with hardware intact. IMPRESSION: Right upper lobe and perihilar interstitial airspace disease appears more conspicuous on the current examination suggestive of worsening pulmonary infiltrate. Electronically signed by: Gianna Abrams MD (06/09/2020 9:41 AM) [id number]
--- NOTE | 2020-06-09 10:49 | PDOC3 ---
Discharge Summary Date of Admission: Jun 07, 2020 Date of Discharge: Jun 09, 2020 Follow-Up: 1-2 days Admitting Diagnosis comment: DISCHARGE DX Assessment/Plan IMPRESSION: ACUTE Congestive heart failure with cardiomegaly and pulmonary edema. 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 Involvement of the adjacent posterolateral right rib appears be present with associated destructive findings. pet SCAN 12/02 associated 6th rib fracture. cachexia sepsis PLAN emperic iv rocephin, zithromax consult PULM COVID 19 NEG consult oncology CONSULT GI [facility] ADMIT 34 min pt exam, chart review, D/C PLANNING > 50% of time spent with exam, chart review, pt care coordination Justifications for Admission Justifications for Admission General Conditions Elevated Lactate?: Yes Justification for admission: Patient has tachycardia (> 100 beats per minute) or hypotension (SBP < 90 mm Hg) leading to inadequate systemic perfusion as indicated by lactate of greater or equal to 2.5 mmol/L. Other Justification History of Present Illness History of Present Illness Identification/Chief Complaint Chief Complaint SEEN IN ER WITH COUGH , 85-year-old female past medical history significant for stage 4 lung cancer, COPD with tobacco dependence, CAD, atrial fibrillation on eliquis and hypertension, presents the ED with complaints of shortness of breath for the past few days with anorexia, sore throat and productive cough. Patient states she had a stress test and lower extremity duplex ultrasound by primary care physician. EMR was reviewed lower extremity duplex showed no evidence of DVT. Stress test showed no active ischemia, with atrial fibrillation. 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 FHX COPD Cardiovascular: Hyperlipidemia Pulmonary: Bronchitis, COPD Psych: No pertinent hx Musculoskeletal: Osteoarthritis Endocrine: No pertinent hx Family History Family History: Chronic Bronchitis, Hypertension Social History Smoke: Quit ALCOHOL: none Drugs: None Current Problem List Problem List Problems Medical Problems: (1) CAP (community acquired pneumonia) Status: Acute (2) CHF (congestive heart failure) Status: Acute Vitals Vitals Vital Signs Date Time Temp Pulse Resp B/P (MAP) Pulse Ox O2 Delivery O2 Flow Rate FiO2 06/09/20 03:00 98.3 100 19 150/65 (93) 94 Nasal Cannula 3.0 98.3 Physical Exam Physical Exam Constitutional: thin/frail, no acute distress, HENT: Normocephalic, atraumatic, bilateral external ears normal, oropharynx moist, no oral exudates or erythema, nose normal. [] Eyes: EOMI, conjunctiva normal, no discharge. [] Neck: Normal range of motion, supple, no stridor. [] Cardiovascular:Heart rate regular rhythm, no murmur [] Lungs & Thorax: CTA Abdomen: Bowel sounds normal, soft, no tenderness, no masses, no pulsatile masses. [] Skin: Warm, dry, pale appearing Back: No tenderness, no CVA tenderness. [] Extremities: No tenderness, no cyanosis, no clubbing, ROM intact, no edema. [] Neurologic: Alert and oriented X 3, normal motor function, normal sensory function, no focal deficits noted. [] Psychologic: Affect normal, judgment normal, mood normal. [] Heart: RRR Breasts: Not examined Abdomen: Soft Rectal Exam: not examined PELVIC: Examination not indicated Extremities: No cyanosis Neuro: Normal speech, Cranial nerves 3-12 NL Psych/Mental Status: Mental status NL, Mood NL General: Alert, Oriented X3, Cooperative, No acute distress Lungs: Clear Abdomen: Normal bowel sounds, Soft, No tenderness Extremities: No cyanosis FINAL DIAGNOSIS Problems Medical Problems: (1) CAP (community acquired pneumonia) Status: Acute (2) CHF (congestive heart failure) Status: Acute (3) Sepsis Status: Acute (4) Symptomatic anemia Status: Acute Brief Hospital Course Ms. Headley is a 85 old [sex] who presented with [PNEUMONIA ] CONDITION AT DISCHARGE: Improved Discharge Medications Current Medications Ceftriaxone Sodium (Rocephin) 1 gm 1X ONCE IVP Last administered on 06/06/20at 21:00; Start 06/06/20 at 20:45; Stop 06/06/20 at 20:46; Status DC Azithromycin 250 ml @ 250 mls/hr 1X ONCE IV Last administered on 06/06/20at 21:00; Start 06/06/20 at 20:45; Stop 06/06/20 at 21:44; Status DC Sodium Chloride 250 ml @ 250 mls/hr 1X ONCE IV Last administered on 06/06/20at 21:00; Start 06/06/20 at 20:45; Stop 06/06/20 at 21:44; Status DC Nitroglycerin (Nitrostat) 0.4 mg PRN Q5MIN PRN SL CHEST PAIN; Start 06/06/20 at 21:45 Sennosides (Senna) 17.2 mg PRN BID PRN PO CONSTIPATION; Start 06/06/20 at 22:30; Stop 06/08/20 at 11:08; Status DC Docusate Sodium (Colace) 100 mg PRN DAILY PRN PO HARD STOOLS Last administered on 06/09/20at 08:50; Start 06/06/20 at 22:30 Ondansetron HCl (Zofran) 4 mg PRN Q6HRS PRN IVP NAUSEA/VOMITING; Start 06/06/20 at 22:30 Potassium Chloride (Klor-Con) 40 meq 1X PRN PRN PO PER PROTOCOL; Start 06/06/20 at 22:30 Magnesium Oxide (Magnesium Oxide) 400 mg BID PO Last administered on 06/08/20at 20:55; Start 06/07/20 at 09:00; Stop 06/08/20 at 21:01; Status DC Potassium Chloride/Water 100 ml @ 100 mls/hr Q1H IV ; Start 06/06/20 at 23:00; Stop 06/07/20 at 02:59; Status DC Magnesium Sulfate 50 ml @ 25 mls/hr Q24H IV ; Start 06/06/20 at 23:00; Stop 06/09/20 at 00:59; Status DC Potassium Chloride/Water 100 ml @ 100 mls/hr PRN Q1HR PRN IV low k; Start 06/06/20 at 22:30 Dextrose (Dextrose 50%-Water Syringe) 12.5 gm PRN Q15MIN PRN IV SEE COMMENTS; Start 06/06/20 at 22:30 Acetaminophen (Tylenol) 650 mg PRN Q4HRS PRN PO TEMP OVER 100.4F OR MILD PAIN Last administered on 06/09/20at 08:50; Start 06/06/20 at 22:30 Enoxaparin Sodium (Lovenox 30mg Syringe) 30 mg Q24H SQ Last administered on 06/08/20at 20:55; Start 06/06/20 at 22:30 Azithromycin 500 mg/Sodium Chloride 250 ml @ 250 mls/hr Q24H IV Last administered on 06/08/20at 20:54; Start 06/07/20 at 21:00 Ceftriaxone Sodium (Rocephin) 1 gm Q24H IVP Last administered on 06/08/20at 20:54; Start 06/07/20 at 20:00 Influenza Virus Vaccine Quadrival (Fluzone Quad 1307-7401 Syringe) 0.5 ml ONCE ONCE VAX IM Last administered on 06/07/20at 09:46; Start 06/07/20 at 09:00; Stop 06/07/20 at 09:01; Status DC Lactobacillus Rhamnosus (Culturelle) 1 cap BID PO Last administered on 06/09/20 08:50; Start 06/07/20 at 21:00 Pantoprazole Sodium (PROTONIX VIAL for IV PUSH) 40 mg DAILYAC IVP Last administered on 06/08/20at 08:58; Start 06/07/20 at 17:00; Stop 06/08/20 at 11:08; Status DC Polyethylene Glycol (miraLAX PACKET) 17 gm DAILY PO Last administered on 0at 08:49; Start 06/08/20 at 12:00 Polyethylene Glycol (miraLAX PACKET) 17 gm PRN DAILY PRN PO CONSTIPATION; Start 06/08/20 at 11:15 Pantoprazole Sodium (Protonix) 40 mg DAILYAC PO Last administered on 06/09/20at 08:50; Start 06/09/20 at 07:30 Ferrous Sulfate (Feosol) 325 mg BID PO Last administered on 06/09/20at 08:50; Start 06/08/20 at 12:00 Active Scripts Active Reported Meclizine Hcl 25 Mg Tablet 25 Mg PO PRN PRN Citalopram Hbr (Citalopram Hydrobromide) 40 Mg Tablet 40 Mg PO DAILY Folic Acid 0.8 Mg Capsule 0.4 Mg PO DAILY Dok (Docusate Sodium) 100 Mg Capsule 100 Mg PO DAILY Coq-10 (Ubidecarenone) 100 Mg Capsule 100 Mg PO DAILY Calcium 1,000 + D3 Caplet (Calcium Carbonate/Vitamin D3) 1 Each Tablet 1 Tab PO DAILY 30 Days Atorvastatin Calcium 40 Mg Tablet 1 Tab PO DAILY Aspirin 81 Mg Tab.chew 1 Tab PO DAILY Eliquis (Apixaban) 5 Mg Tablet 5 Mg PO BID Alendronate Sodium 70 Mg Tablet 1 Tab PO WEEKLY Ventolin Hfa Inhaler (Albuterol Sulfate) 18 Gm Hfa.aer.ad 2 Puff INH PRN Q4-6HRS PRN Vitamin B-12 (Cyanocobalamin (Vitamin B-12)) 500 Mcg Tablet 1 Tab PO DAILY 30 Days B Complex (Vitamin B Complex) 1 Each Tablet 1 Tab PO DAILY 30 Days Vesicare (Solifenacin Succinate) 10 Mg Tablet 1 Tab PO DAILY 30 Days Polyethylene Glycol 3350 2,500 Gm Powder 17 Gm PO DAILY Pantoprazole Sodium (Pantoprazole Sodium) 40 Mg Tablet.dr 40 Mg PO DAILYAC Multi Vitamin Daily (Multivitamin) 1 Each Tablet 1 Tab PO DAILY 30 Days Metoprolol Tartrate 25 Mg Tablet 1 Tab PO BID Hydralazine Hcl 10 Mg Tablet 2 Tab PO TID Furosemide 20 Mg Tablet 1 Tab PO DAILY Fish Oil 1,000 Mg Softgel ([place]-3 Fatty Acids/Fish Oil) 1 Each Capsule 1 Cap PO DAILY 30 Days Ferrous Sulfate 325 Mg Tablet 1 Tab PO DAILY Vital Signs Vital Signs Date Time Temp Pulse Resp B/P (MAP) Pulse Ox O2 Delivery O2 Flow Rate FiO2 06/09/20 07:15 98.5 94 20 145/59 (87) 95 Nasal Cannula 2.0 98.5 Labs Laboratory Tests Test 06/08/20 05:45 06/09/20 03:30 White Blood Count 5.3 x10^3/uL (4.0-11.0) Red Blood Count 3.32 x10^6/uL (3.50-5.40) Hemoglobin 8.3 g/dL (12.0-15.5) Hematocrit 25.4 % (36.0-47.0) Mean Corpuscular Volume 77 fL (79-100) Mean Corpuscular Hemoglobin 25 pg (25-35) Mean Corpuscular Hemoglobin Concent 33 g/dL (31-37) Red Cell Distribution Width 21.4 % (11.5-14.5) Platelet Count 286 x10^3/uL (140-400) Neutrophils (%) (Auto) 76 % (31-73) Lymphocytes (%) (Auto) 8 % (24-48) Monocytes (%) (Auto) 10 % (0-9) Eosinophils (%) (Auto) 5 % (0-3) Basophils (%) (Auto) 1 % (0-3) Neutrophils # (Auto) 4.0 x10^3/uL (1.8-7.7) Lymphocytes # (Auto) 0.4 x10^3/uL (1.0-4.8) Monocytes # (Auto) 0.5 x10^3/uL (0.0-1.1) Eosinophils # (Auto) 0.3 x10^3/uL (0.0-0.7) Basophils # (Auto) 0.0 x10^3/uL (0.0-0.2) Sodium Level 136 mmol/L (136-145) Potassium Level 4.2 mmol/L (3.5-5.1) Chloride Level 102 mmol/L (98-107) Carbon Dioxide Level 27 mmol/L (21-32) Anion Gap 7 (6-14) Blood Urea Nitrogen 9 mg/dL (7-20) Creatinine 0.6 mg/dL (0.6-1.0) Estimated GFR (Cockcroft-Gault) 95.5 BUN/Creatinine Ratio 15 (6-20) Glucose Level 94 mg/dL (70-99) Calcium Level 8.8 mg/dL (8.5-10.1) Total Bilirubin 0.3 mg/dL (0.2-1.0) Aspartate Amino Transf (AST/SGOT) 17 U/L (15-37) Alanine Aminotransferase (ALT/SGPT) 8 U/L (14-59) Alkaline Phosphatase 65 U/L (46-116) Total Protein 7.1 g/dL (6.4-8.2) Albumin 2.0 g/dL (3.4-5.0) Albumin/Globulin Ratio 0.4 (1.0-1.7) Iron Level 19 ug/dL (50-170) Total Iron Binding Capacity 284 ug/dL (250-450) Iron Saturation 7 % (15-34) Vitamin B12 Level 890 pg/mL (247-911) Laboratory Tests Test 06/09/20 03:30 Iron Level 19 ug/dL (50-170) Total Iron Binding Capacity 284 ug/dL (250-450) Iron Saturation 7 % (15-34) Vitamin B12 Level 890 pg/mL (247-911) Allergies Allergies Coded Allergies Type Severity Reaction Last Updated Verified No Known Drug Allergies 05/04/20 No Disposition/Orders: D/C to Home w/ HH Justicifation of Admission Dx: Justifications for Admission: Justification of Admission Dx: Yes IAN CHAPMAN MD Jun 09, 2020 10:49
[2020-06-09] MEDS ORDERED: LACT1CAP19 PO (10:53)
[2020-06-09] MEDS ORDERED: POLY17PO28 PO (10:53)
[2020-06-09] MEDS ORDERED: CEFD300C PO (10:53)
[2020-06-09] MEDS ORDERED: NITR0.4T24 SL (10:53)
[2020-06-09] MEDS ORDERED: ACET325T9 PO (10:53)
--- NOTE | 2020-06-09 10:55 | SNU/HH DC ---
DISCHARGE WITH HOME HEALTH DISCHARGE INFORMATION: Discharge Date: Jun 09, 2020 Final Diagnosis: Problems Medical Problems: (1) CAP (community acquired pneumonia) Status: Acute (2) CHF (congestive heart failure) Status: Acute (3) Sepsis Status: Acute (4) Symptomatic anemia Status: Acute Condition on Discharge: Stable CODE STATUS: Code Status: Full HOME HEALTH: Face to Face: I certify this patient is under my care and that I, or a nurse practitioner or physician's property management assistant working with me, had a face to face encounter that meets t he physician face to face encounter requirements with this patient on []. Medical Complications: COPD, Pneumonia Prison For: Assess Cardiopulm Status, Assess & Educate Safety, Assess/Skilled Observatio, Bowel/Bladder Training, Medication Management, Pain Management RN For Eval/Treatment: Yes Physical Therapy For: Evalulation/Treatment Occupational Therapy For: Evaluation/Treatment Speech Language Pathology For: Evaluation/Treatment Home Health Aide For: Self-care MICROPALEONTOLOGIST For: Community Resources Pt Meets Homebound Status: Fatigue w/ amb. POST DISCHARGE ORDERS: Activity Instructions for Disc: Activity as tolerated DIET AFTER DISCHARGE: Cardiac CHECKS AFTER DISCHARGE: Checks after discharge: Check blood press - daily FOLLOW-UP: PCP to follow Home Health: 1 DAY Follow up with: PCP NEXT WEEK Follow Up With: PULMONARY 1-2 WEEKS TREATMENT/EQUIPMENT ORDERS: Adaptive Equipment Issued: Front wheeled walker, Raised toilet seat Discharge Respiratory Equipmen: Oxygen, Nebulizer CERTIFICATION STATEMENT: Certification Statement: Certification Statement: Based on the above finding, I certify that this patient is confined to the home and needs intermittent usp care, physical therapy and/or speech therapy, or continues to need occupational therapy.~ This patient is under my care, and I have initiated the establishment of the plan of care.~ This patient will be followed by myself or a community physician who will periodically review the plan of care. Home Meds Active Scripts Cefdinir (CEFDINIR) 300 Mg Capsule, 2 CAP PO DAILY for PNEUMONIA, #20 CAP Prov:IAN CHAPMAN MD 06/09/20 Lactobacillus Rhamnosus Gg (CULTURELLE) 1 Each Cap.sprink, 1 CAP PO BID for SUPPLEMENT for 30 Days, #60 CAP Prov:IAN CHAPMAN MD 06/09/20 Polyethylene Glycol 3350 (POLYETHYLENE GLYCOL 3350) 17 Gm Powd.pack, 17 GM PO DAILY for PREVENT CONSTIPATION for 30 Days, #30 PKT Prov:IAN CHAPMAN MD 06/09/20 Acetaminophen (TYLENOL) 325 Mg Tablet, 650 MG PO PRN Q4HRS PRN for TEMP OVER 100.4F OR MILD PAIN for 30 Days, #60 TAB Prov:IAN CHAPMAN MD 06/09/20 Nitroglycerin (NITROSTAT) 0.4 Mg Tab.subl, 0.4 MG SL PRN Q5MIN PRN for CHEST PAIN for 30 Days, #30 TAB Prov:IAN CHAPMAN MD 06/09/20 Reported Medications Citalopram Hydrobromide (CITALOPRAM HBR) 40 Mg Tablet, 40 MG PO DAILY for DEPRESSION/ANXIETY , TAB 05/04/20 Folic Acid (Folic Acid) 0.8 Mg Capsule, 0.4 MG PO DAILY for supp, CAP 11/20/19 Docusate Sodium (DOK) 100 Mg Capsule, 100 MG PO DAILY for constipation, CAP 11/20/19 Ubidecarenone (COQ-10) 100 Mg Capsule, 100 MG PO DAILY for supp, CAP 11/20/19 Calcium Carbonate/Vitamin D3 (CALCIUM 1,000 + D3 CAPLET) 1 Each Tablet, 1 TAB PO DAILY for supp for 30 Days, #30 TAB 0 Refills 11/20/19 Atorvastatin Calcium (ATORVASTATIN CALCIUM) 40 Mg Tablet, 1 TAB PO DAILY for hld, #30 TAB 5 Refills 11/20/19 Aspirin (ASPIRIN) 81 Mg Tab.chew, 1 TAB PO DAILY for prev, #30 TAB 3 Refills 11/20/19 Apixaban (ELIQUIS) 5 Mg Tablet, 5 MG PO BID for prev, TAB 11/20/19 Alendronate Sodium (ALENDRONATE SODIUM) 70 Mg Tablet, 1 TAB PO WEEKLY for Osteoporosis, #4 TAB 3 Refills 11/20/19 Albuterol Sulfate (VENTOLIN HFA INHALER) 18 Gm Hfa.aer.ad, 2 PUFF INH PRN Q4- 6HRS PRN for SHORTNESS OF BREATH, INHALER 0 Refills 11/20/19 Cyanocobalamin (Vitamin B-12) (VITAMIN B-12) 500 Mcg Tablet, 1 TAB PO DAILY for supp for 30 Days, #30 TAB 0 Refills 11/20/19 Vitamin B Complex (B COMPLEX) 1 Each Tablet, 1 TAB PO DAILY for supp for 30 Days, #30 TAB 0 Refills 11/20/19 Solifenacin Succinate (VESICARE) 10 Mg Tablet, 1 TAB PO DAILY for incontinence for 30 Days, #30 TAB 0 Refills 11/20/19 Pantoprazole Sodium (PANTOPRAZOLE SODIUM ) 40 Mg Tablet.dr, 40 MG PO DAILYAC for GERD, TAB 11/20/19 Multivitamin (MULTI VITAMIN DAILY) 1 Each Tablet, 1 TAB PO DAILY for supp for 30 Days, #30 TAB 0 Refills 11/20/19 Hydralazine Hcl (HYDRALAZINE HCL) 10 Mg Tablet, 2 TAB PO TID for htn, #90 TAB 3 Refills 11/20/19 Furosemide (FUROSEMIDE) 20 Mg Tablet, 1 TAB PO DAILY for d, #90 TAB 1 Refill 11/20/19 [place]-3 Fatty Acids/Fish Oil (FISH OIL 1,000 MG SOFTGEL) 1 Each Capsule, 1 CAP PO DAILY for supp for 30 Days, #30 CAP 0 Refills 11/20/19 Ferrous Sulfate (FERROUS SULFATE) 325 Mg Tablet, 1 TAB PO DAILY for anemia, #30 TAB 3 Refills 11/20/19 Discontinued Reported Medications Meclizine Hcl (MECLIZINE HCL) 25 Mg Tablet, 25 MG PO PRN PRN for SEE COMMENTS, TAB 05/04/20 Polyethylene Glycol 3350 (POLYETHYLENE GLYCOL 3350) 2,500 Gm Powder, 17 GM PO DAILY for constipation, #255 GM 0 Refills 11/20/19 Metoprolol Tartrate (METOPROLOL TARTRATE) 25 Mg Tablet, 1 TAB PO BID for htn, #180 TAB 1 Refill 11/20/19 IAN CHAPMAN MD Jun 09, 2020 10:55
[2020-06-09 11:00] VITALS: BP 126/56
--- NOTE | 2020-06-09 11:41 | PDOC ---
Date of Service: DATE: 06/09/20 TIME: 11:38 Subjective: Subjective: No GI complaints, says she's going home. Objective: Objective: D/w nurse - no GI concerns, to DC later. Vital Signs: Vital Signs Date Time Temp Pulse Resp B/P (MAP) Pulse Ox O2 Delivery O2 Flow Rate FiO2 06/09/20 08:00 Nasal Cannula 2.0 06/09/20 07:15 98.5 94 20 145/59 (87) 95 98.5 Labs: Laboratory Tests Test 06/09/20 03:30 Iron Level 19 ug/dL Total Iron Binding Capacity 284 ug/dL Iron Saturation 7 % Vitamin B12 Level 890 pg/mL PE: GEN: NAD LUNGS: diminished HEART: irregular ABD: NABS, S/ND/NT NEURO/PSYCH: A & O 3 A/P: Chronic FILI - Hgb improved s/p transfusions; many 'scopes in the past, suspect SB AVMs CAD, A Fib - on Eliquis and ASA -- DC per primary on PPI and iron BID-TID. Justicifation of Admission Dx: Justifications for Admission: Justification of Admission Dx: Yes MATTHEW TENA Jun 09, 2020 11:40
== END 2020-06-09 15:00 | disposition home health service (06) | DRG 871 ==
LOC: ER 20:12 → 6 SOUTH 22:18
PROVIDERS: ADMIT Internal Medicine; ATTEND Internal Medicine
PROC: 30233N1 Transfusion of Nonautologous Red Blood Cells into Peripheral Vein, Percutaneous Approach (ICD-10-PCS; principal; 2020-06-07)
DX: A41.9 Sepsis, unspecified organism (principal); I50.41 Acute combined systolic (congestive) and diastolic (congestive) heart failure; J18.9 Pneumonia, unspecified organism; J96.21 Acute and chronic respiratory failure with hypoxia; C34.11 Malignant neoplasm of upper lobe, right bronchus or lung; C34.31 Malignant neoplasm of lower lobe, right bronchus or lung; D62 Acute posthemorrhagic anemia; E46 Unspecified protein-calorie malnutrition; I48.20 Chronic atrial fibrillation, unspecified; J44.0 Chronic obstructive pulmonary disease with (acute) lower respiratory infection; J98.11 Atelectasis; R64 Cachexia; D50.9 Iron deficiency anemia, unspecified; E78.00 Pure hypercholesterolemia, unspecified; E78.5 Hyperlipidemia, unspecified; F32.9 Major depressive disorder, single episode, unspecified; F41.9 Anxiety disorder, unspecified; I11.0 Hypertensive heart disease with heart failure; I25.10 Atherosclerotic heart disease of native coronary artery without angina pectoris; K21.9 Gastro-esophageal reflux disease without esophagitis; K57.90 Diverticulosis of intestine, part unspecified, without perforation or abscess without bleeding; K59.00 Constipation, unspecified; M81.0 Age-related osteoporosis without current pathological fracture; Z20.828 Contact with and (suspected) exposure to other viral communicable diseases; Z79.01 Long term (current) use of anticoagulants; Z80.1 Family history of malignant neoplasm of trachea, bronchus and lung; Z82.49 Family history of ischemic heart disease and other diseases of the circulatory system; Z82.5 Family history of asthma and other chronic lower respiratory diseases; Z85.118 Personal history of other malignant neoplasm of bronchus and lung; Z87.19 Personal history of other diseases of the digestive system; Z87.891 Personal history of nicotine dependence; Z90.49 Acquired absence of other specified parts of digestive tract; Z90.710 Acquired absence of both cervix and uterus; Z95.1 Presence of aortocoronary bypass graft; M19.90 Unspecified osteoarthritis, unspecified site; Z68.20 Body mass index [BMI] 20.0-20.9, adult
CPT/HCPCS: 36415; 36600; 71045; 80048; 80053; 82607; 82728; 82805; 83540; 83550; 83605; 83735; 83880; 84100; 84484; 85007; 85025; 86850; 86900; 86901; 86920; 87040; 90471; 90686; 93005; 96365; 96366; 96375; 99285; C9113; J0456; J0696; J1650; J7050; P9016; 97116-GP; 97535-GO; G0378; J7030; U0003-CS

== ENCOUNTER → 2020-06-30 | Outpatient (CLI) | payer OTHER, MEDICAID ==
[2020-06-09 11:00] VITALS: BP 126/56
[~2020-06-30] MED LIST changes: +ACET325T9 PO; -ALEN70TA6 PO; +ALEN70TA60 PO; +CEFD300C PO; +LACT1CAP19 PO; +NITR0.4T24 SL; +POLY17PO28 PO
--- NOTE | 2020-06-30 19:20 | RAD ---
EXAM: PET W CT SKULL TO MIDTHIGH EXAM DATE: 06/30/2020 INDICATION: Lung cancer restaging RADIOPHARMACEUTICAL: 13.9 mCi of F-18 Fluorodeoxyglucose (FDG) I.V. via the left antecubital fossa. TECHNIQUE: Patient weight: 97 pounds. Following at least four-hour fasting, the patient's blood glucose was 116 mg/dl. Approximately 1 hour after administration of FDG, overlapping emission scanning was performed from the orbital meatal line through the pelvis. A low-dose CT was performed for attenuation correction purposes and anatomic localization. Fused images of PET and CT were reviewed. Any standardized uptake values (SUV) reported are maximum values within a volume region of interest, expressed in gm/ml. COMPARISON: PET CT of December 10, 2019 FINDINGS: PET: In the head and neck, no abnormal FDG uptake is appreciated. In the chest, patient's known right lower lobe lung mass again shows peripheral FDG uptake most conspicuously along the medial and inferior margins to max SUV of 8.2, compared with a max SUV of 7.4 previously. No other abnormal FDG uptake is appreciated in the chest besides that of inflammatory changes in the posterior right upper lobe and right lower lobe. In the abdomen, new abnormal FDG uptake is evident in the pancreatic tail to a max SUV of 7.1. There is also new, asymmetric FDG uptake in the ascending colon to max SUV of 10.7 (by contrast, the descending colon shows a max SUV of 2.9). No abnormal FDG uptake in the osseous structures, with activity in the ribs in the posterior lateral right chest wall difficult to distinguish from adjacent activity in the lung parenchyma. CT: Head and neck again demonstrates extensive mucosal thickening in the paranasal sinuses with near complete opacification of all visualized sinuses. The mastoids are relatively well aerated but a small left mastoid effusion is also seen. There is deformity to the nasal bones leftward, suggestive of a chronic fracture. Chest shows post CABG surgical changes, centrilobular pattern emphysema, and new parenchymal consolidation in the right upper and right lower lobes with air bronchograms suspicious for pneumonia or pneumonitis, possibly treatment related. There are multiple posterior lateral right incompletely healed rib fractures and a trace right pleural effusion. They are slightly obscured by respiratory motion artifact. Patient's known lung mass is centrally hypodense and obscured by parenchymal consolidation on CT. There are no enlarged mediastinal lymph nodes identified. The heart is enlarged. No pericardial effusion is present. Thoracic aorta shows extensive calcifications but is normal in caliber. Abdomen and pelvis show postcholecystectomy changes and masslike fullness in the pancreatic tail correlating with the abnormal area of FDG uptake. On axial image 195 of series 3, this measures 3.4 x 2.1 cm and contains coarse internal calcification. There is extensive colonic diverticulosis without findings of bowel obstruction perforation. The gallbladder is surgically absent. There are dense calcifications in the normal caliber abdominal aorta. Uterus and ovaries are not visualized and likely surgically absent. No ascites, fluid collection or evidence of adenopathy. Besides patient's rib fractures, previously showing erosions adjacent to the patient's lung mass in the sixth rib, no aggressive appearing osseous lesions are seen currently. There is evidence of incomplete healing from the erosive change in this rib, as well as evidence of a displaced fracture in the posterior right seventh rib that is better seen. Exaggerated thoracic kyphosis remains present. IMPRESSION: 1. Interval posttreatment changes in the right lung with equivocal increase in FDG activity along the medial inferior margins of the right lower lobe lung mass, possibly reflecting superimposition of treatment-related acute pneumonitis. 2. Interval development of an FDG avid pancreatic tail mass. This can be evaluated in greater detail with pancreas protocol abdominal CT or MRI. 3. Interval development of avid FDG activity in the right-sided colon, possibly a treatment related effect. Electronically signed by: Navneet Stevens MD (06/30/2020 7:17 PM) [id number]
== END ==
LOC: PETSC 08:27
PROVIDERS: ATTEND Radiology Radiation Oncology
DX: C34.31 Malignant neoplasm of lower lobe, right bronchus or lung (principal); J43.2 Centrilobular emphysema; J90 Pleural effusion, not elsewhere classified; R91.8 Other nonspecific abnormal finding of lung field; I51.7 Cardiomegaly; K57.30 Diverticulosis of large intestine without perforation or abscess without bleeding; I70.0 Atherosclerosis of aorta; M40.294 Other kyphosis, thoracic region; S22.39XD Fracture of one rib, unspecified side, subsequent encounter for fracture with routine healing; X58.XXXD Exposure to other specified factors, subsequent encounter
CPT/HCPCS: 78815; A9552

== ENCOUNTER → 2020-07-21 | Outpatient (CLI) | payer OTHER, MEDICAID ==
[~2020-07-21] MED LIST changes: +CONTRAST GIVEN. MC PRN; +FLUT16SP NS; -FOLI20CA PO; +FOLIC ACID20 MG PO; +HYDR-2759 PO; +IOHEXOL 240 MG/ML 50ML VIAL. PO ONE; +IOHEXOL 300 MG/ML 100ML VIAL. IV ONE
--- NOTE | 2020-07-21 12:06 | RAD ---
EXAM: Abdomen and pelvis CT with intravenous contrast. HISTORY: Lung cancer. Abnormal pancreatic and colon activity on a recent PET/CT. TECHNIQUE: Computed tomographic images of the abdomen and pelvis were obtained following the administration of intravenous contrast. Multiplanar reformatting was performed. *One or more of the following individualized dose reduction techniques were utilized for this examination: 1. Automated exposure control. 2. Adjustment of the mA and/or kV according to patient size. 3. Use of iterative reconstruction technique. COMPARISON: PET/CT dated 06/30/2020.. FINDINGS: There is a heterogeneous right infrahilar mass with areas of internal necrosis and surrounding suspected lymphangitic spread of tumor, partially included on the [id number]. This measures at least 9.6 cm on the [id number]. There is emphysema. There is multifocal interstitial infiltrate or there are chronic interstitial changes within the bilateral mid and lower lungs. There is cardiomegaly. There is evidence of prior coronary artery bypass grafting. There is a tiny hiatal hernia. There is calcified plaque at the right lung base. There is a stable 3.9 cm hypodense lesion along the left anterior cardiophrenic angle, the attenuation which favors fluid. This may be a small pericardial cyst. No hepatic lesion is seen. The gallbladder surgically absent. There is a heterogeneous hypodense mass within the junction of the pancreatic body and tail measuring 2.5 cm. There is irregular duct dilatation and downstream from the mass. There is an ill-defined hypodense lesion within the spleen measuring 1.2 cm. There are few additional tiny hypodense lesion within the peripheral aspect of the spleen which are too small to characterize. The adrenal glands are unremarkable. There is an ill-defined hypodense lesion within the superior right kidney measuring approximately 3.0 cm. The attenuation of this is greater than that for a simple cyst. 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 There is no hydronephrosis. There is distal colonic diverticulosis. There is no evidence of diverticulitis. There is no convincing CT correlate for asymmetric increased radiotracer activity within the colon. The urinary bladder is unremarkable. The uterus is absent. The adnexal regions are unremarkable. There is aortic and aortic branch vessel atherosclerosis. No lymphadenopathy is seen. There are degenerative changes involving the spine. There are few osseous hemangiomas. There is no convincing suspicious osseous lesion. There are chronic thoracic endplate depressions and compression deformities at T9 and T11. IMPRESSION: 1. Heterogeneous right lower lobe mass with suspected internal necrosis and surrounding lymphangitic spread of tumor, partially included on the dykvw-ly-wxxd and consistent with known neoplasm. There is is not signally changed when allowing for limitations due to the [id number]-mt-[id number]. 2. 2.5 cm mass at the junction of the pancreatic body and tail. This is associated with downstream irregular pancreatic ductal dilatation. The imaging appearance favors a primary pancreatic adenocarcinoma. However, given the presence of known primary lung malignancy, the possibility of a pancreatic metastasis is not excluded. This is new compared to a CT dated 11/19/2019. 3. 3.0 cm ill-defined heterogeneous hypodense lesion within the superior right kidney, the attenuation of which is not typical for a cyst. The differential includes a primary neoplasm as well as abscess. This is also new compared to the prior study. 4. Colonic diverticulosis. There is no clear correlate for abnormal tracer activity within the colon on the recent PET/CT. Correlate with colonoscopy findings. 5. Small ill-defined hypodense lesions within the spleen. These are indeterminate and may be due to the phase of contrast administration, hemangiomas, cysts or splenic metastases. These are slightly more conspicuous compared to the prior CT dated 11/19/2019. Electronically signed by: Dayana Tsai MD (07/21/2020 12:03 PM) [id number]
== END ==
LOC: CT 09:29
PROVIDERS: ATTEND Internal Medicine Hematology & Oncology
DX: C34.31 Malignant neoplasm of lower lobe, right bronchus or lung (principal); I51.7 Cardiomegaly; K44.9 Diaphragmatic hernia without obstruction or gangrene; J98.4 Other disorders of lung; I31.8 Other specified diseases of pericardium; K57.30 Diverticulosis of large intestine without perforation or abscess without bleeding; Z90.710 Acquired absence of both cervix and uterus; I70.0 Atherosclerosis of aorta; M48.54XA Collapsed vertebra, not elsewhere classified, thoracic region, initial encounter for fracture; M43.8X4 Other specified deforming dorsopathies, thoracic region
CPT/HCPCS: 74177; Q9966; Q9967